=== PATIENT | male | born 1930 | race Caucasian/White ===

== ENCOUNTER 2018-02-06 12:09 | Inpatient (IN) | payer MEDICARE, OTHER ==
[~2018-02-06] VITALS: Ht 182.9 cm; Wt 88.7 kg
--- NOTE | ~2018-02-06 | MORECARE ---
CASE MANAGEMENT DISCHARGE SUMMARY PATIENT: AMARA MCLAUGHLIN UNIT: [id number] ADM DATE: 02/06/18 AGE: 87 : [birth year] SEX: M ROOM/BED: D.2103 AUTHOR: GIO,DOC PHYSICIAN: REFERRING PHYSICIAN: ZAHEER AMAYA MD DATE OF SERVICE: 02/23/18 Discharge Plan Patient Name: AMARA MCLAUGHLIN Facility: [facility]:[place] : 1930 Planned Disposition: Halfway Facility Anticipated Discharge Date: 02/23/18 Discharge Date: Expected LOS: 17 Initial Reviewer: [id number] Initial Review Date: 02/06/2018 Generated: 02/23/18 1:51 pm Comments DCP- Discharge Planning Updated by [email or web address]: Sal Greene on 02/22/18 1:[address] Patient Name: AMARA MCLAUGHLIN Encounter No: [id number] : 1930 Primary Insurance: MEDICARE A & B Anticipated DC Date: 02-21-2018 Planned Disposition: Halfway Facility External Planned Provider: JAY MAHONEY MEDICARE REHAB BED DCP follow-up note: [facility] WILL ACCEPT PT FOR REHAB WHEN STABLE. GOLD FAXED UPDATE TO [facility] AT [phone]. FOR DISCHARGE TO REHAB AT [facility], FAX DISCHARGE INFORMATION TO [facility] AT [phone]. NURSE REPORT TO BE CALLED TO [facility] AT [phone]. [facility] TO ARRANGE VAN TRANSPORTATION. Sal Greene CASE MANAGEMENT Appended by Sal Greene on 02/22/2018 12:05 CDT: GOLD RECEIVED CALL FROM FRANSISCO OF [facility], , UPDATE RECEIVED BY FRANSISCO. FRANSISCO REPORTS IT IS LATE IN THE DAY TO RECEIVE PT AT [facility] AND IF PT IS STABLE AND IF THE DOCTOR DISCHARGES TODAY, MAYBE THEY CAN GET PT TO [facility] TOMORROW, 02-23-18. FOR DISCHARGE TO REHAB AT [facility], FAX DISCHARGE INFORMATION TO [facility] AT [phone]. NURSE REPORT TO BE CALLED TO [facility] AT [phone]. [facility] TO ARRANGE VAN TRANSPORTATION. Sal [place], CASE MANAGEMENT Appended by Sal Greene on 02/22/2018 12:38 CDT: GOLD RECEIVED MESSAGE FROM IFTIKHAR RIOS, DISCHARGE ORDER WILL BE PUT IN TODAY, PT MAY DISCHARGE IN THE MORNING. GOLD CALLED FRANSISCO OF [facility], , NOTIFIED OF DISCHARGE; FRANSISCO WILL WORK ON GETTING TRANSPORT ARRANGEMENT FOR TOMORROW, 02-23-18. FOR DISCHARGE TO REHAB AT [facility], FAX DISCHARGE INFORMATION TO [facility] AT [phone]. NURSE REPORT TO BE CALLED TO [facility] AT [phone]. [facility] TO ARRANGE VAN TRANSPORTATION. Sal Greene CASE MANAGEMENT Appended by Sal Greene on 02/22/2018 14:28 CDT: CM RECEIVED DISCHARGE ORDER, SPOKE TO FRANSISCO AT [facility] WHO REPORTS THEY WILL [facility] PT TOMORROW, 02-23-18, AFTER LUNCH, IN REHAB VAN. CM SPOKE TO PT IN ROOM, PT [facility] AGREEMENT WITH [facility], ASKED CM TO CALL Peyton (sister) [phone]. CM NOTIFIED PT'S SISTER VIA PHONE. CM FAXED DISCHARGE ORDER AND DISCHARGE MEDICATION LIST TO [facility] AT [phone]. FOR DISCHARGE TO REHAB AT [facility], FAX DISCHARGE INFORMATION TO [facility] AT [phone]. NURSE REPORT TO BE CALLED TO [facility] AT [phone]. [facility] TO ARRANGE VAN TRANSPORTATION. Sal Greene CASE MANAGEMENT DCP- Discharge Planning Updated by [id number]: Sal Greene on 02/21/18 11:[address] Patient Name: AMARA MCLAUGHLIN Encounter No: [id number] : 1930 Primary Insurance: MEDICARE A & B Anticipated DC Date: 02-21-2018 Planned Disposition: Halfway Facility External Planned Provider: JAY LEVAN MEDICARE REHAB BED DCP follow-up note: GOLD MALCOLM CALLED [facility], , SPOKE TO YARIEL WHO REPORTS THEY WILL ACCEPT PT FOR REHAB WHEN STABLE. FOR DISCHARGE TO REHAB AT [facility], FAX DISCHARGE INFORMATION TO [facility] AT [phone]. NURSE REPORT TO BE CALLED TO [facility] AT [phone]. [facility] TO ARRANGE VAN TRANSPORTATION. Sal Greene CASE MANAGEMENT DCP- Discharge Planning Updated by [id number]: Sal Greene on 02/20/18 1:[address] Patient Name: AMARA MCLAUGHLIN Encounter No: [id number] : 1930 Primary Insurance: MEDICARE A & B Anticipated DC Date: 02-21-2018 Planned Disposition: Halfway Facility External Planned Provider: JAY MAHONEY MEDICARE REHAB BED DCP follow-up note: CM RECEIVED INPATIENT PRESCEENING ORDER, MET WITH PT IN ROOM TO DISCUSS DISCHARGE PLANNING AND NEEDS. PT DOES NOT WANT TO STAY IN [place] FOR REHAB, WANTS TO GO TO [facility] HE WILL BE CLOSE TO HOME AND HIS SISTER. IMPORTANT MESSAGE FROM MEDICARE PROVIDED AND DISCUSSED. PT ASKED THAT CM CALL HIS SISTER AND LET HER KNOW WHAT IS GOING ON. CM CALLED PT'S SISTER, PEYTON IGLESIAS, , NOTIFIED OF ABOVE. CM NOTIFIED IFTIKHAR RIOS AND DR. AMAYA WHO INFORMED CM THAT PT MAY DISCHARGE AFTER HAVING BOWEL MOVEMENT. CM CALLED Yariel at [facility] [phone], SPOKE TO EMILIANA WHO TOOK MESSAGE FOR SUMMER OF PENDING DISCHARGE TO REHAB. CM Faxed HOSPITAL UPDATE TO [facility] AT [phone]. FOR DISCHARGE TO REHAB AT [facility], FAX DISHCHARGE INFORMATION TO [facility] AT [phone]. NURSE REPORT TO BE CALLED TO [facility] AT [phone]. [facility] TO ARRANGE VAN TRANSPORTATION. NIHARIKA Martini MANAGEMENT DCP- Discharge Planning Updated by [id number]: Tori Cassidy on 02/13/18 5:[address] CM received notification from Summer @ [facility] [phone] . that patient has been accepted to their facility upon discharge. Yariel requested updated clinical when closer to discharge. CM will continue to follow and assist as needed with discharge planning / needs. DCP- Discharge Planning Updated by [id number]: Tori Cassidy on 02/12/18 11:[address] CM was notified that patient sister Peyton Iglesias is requesting patient to go for rehab at [facility] in [place]. CM contacted [facility] and sent records as requested. CM awaiting on approval. CM will continue to follow and assist as needed with discharge planning / needs. DCP- Discharge Planning Updated by [email or web address]: Yanet Magallanes on 02/07/18 12:[address] Patient Name: AMARA MCLAUGHLIN Admission Status: Elective Accout number: [id number] Admission Date: 02-06-2018 : 1930 Admission Diagnosis: Attending: ZAHEER AMAYA Current LOS: 1 Anticipated DC Date: Planned Disposition: Home Primary Insurance: MEDICARE A & B Discharge Planning Comments: CM met with patient to assess discharge planning needs. Patient lives independently in [place] where he plans to return. His sister or nephew will be the one to drive him home at discharge, He did state that he has a 18 year old girl who lives with him. He has a cane that he uses, but does not use any other DME. CM will continue to follow and assist with DC planning needs. Carrier Operator: Yanet Magallanes DCPIA - Discharge Planning Initial Assessment Updated by [id number]: Yanet Magallanes on 02/07/18 1:48 pm * Is the patient Alert and Oriented? Yes * How many steps to enter\exit or inside your home? * PCP Dr Echavarria ([place]) * [facility] * Preadmission Environment Home with Family * ADLs Independent * Equipment Cane * List name and contact numbers for known caregivers / representatives who currently or will assist patient after discharge: Peyton (sister) [phone] * Verbal permission to speak to the caregivers and representatives has been obtained from the patient. Yes * Additional services required to return to the preadmission environment? No * Can the patient safely return to the preadmission environment? Yes * Has this patient been hospitalized within the prior 30 days at any hospital? No Coverage Notice Reviewer: [id number] - Sal Greene Notice Issued Date-Time: 02/20/2018 14:30 Notice Type: IM Discharge Notice Notice Delivered To: Patient Relationship to Patient: College Dean Name: Delivery Method: HAND - Hand Delivered Roya Days: Prior Verbal Notification: Recipient Understood Notice: Yes Recipient Signature: Yes Med Rec Note Co-signed by Attending: Coverage Notice Comment: Last DP export: 02/22/18 1:31 Patient Name: AMARA MCLAUGHLIN Page 17732 at 1251 All edits/amendments must be made on the electronic document DICTATION DATE: 02/23/18 125 PAIRER: MAURO 02/23/18 1250 RPT#: [id number] DC DATE: STATUS: ADM IN [facility] [address] [place] [address] END OF REPORT
--- NOTE | ~2018-02-06 | MORECARE ---
CASE MANAGEMENT DISCHARGE SUMMARY PATIENT: AMARA MCLAUGHLIN UNIT: [id number] ADM DATE: 02/06/18 AGE: 87 : [birth year] SEX: M ROOM/BED: D.2105 AUTHOR: GIO,DOC PHYSICIAN: REFERRING PHYSICIAN: ZAHEER AMAYA MD DATE OF SERVICE: 02/20/18 Discharge Plan Patient Name: AMARA MCLAUGHLIN Facility: [facility]:[place] : 1930 Planned Disposition: Shelter Facility Anticipated Discharge Date: 02/21/18 Discharge Date: Expected LOS: 15 Initial Reviewer: [id number] Initial Review Date: 02/06/2018 Generated: 02/20/18 3:15 pm Comments DCP- Discharge Planning Updated by [id number]: Sal Greene on 02/20/18 1:[address] Patient Name: AMARA MCLAUGHLIN Encounter No: [id number] : 1930 Primary Insurance: MEDICARE A & B Anticipated DC Date: 02-21-2018 Planned Disposition: Shelter Facility External Planned Provider: JYA MAHONEY MEDICARE REHAB BED DCP follow-up note: CM RECEIVED INPATIENT PRESCEENING ORDER, MET WITH PT IN ROOM TO DISCUSS DISCHARGE PLANNING AND NEEDS. PT DOES NOT WANT TO STAY IN [place] FOR REHAB, WANTS TO GO TO [facility] HE WILL BE CLOSE TO HOME AND HIS SISTER. IMPORTANT MESSAGE FROM MEDICARE PROVIDED AND DISCUSSED. PT ASKED THAT CM CALL HIS SISTER AND LET HER KNOW WHAT IS GOING ON. CM CALLED PT'S SISTER, PEYTON IGLESIAS, , NOTIFIED OF ABOVE. CM NOTIFIED IFTIKHAR RIOS AND DR. AMAYA WHO INFORMED CM THAT PT MAY DISCHARGE AFTER HAVING BOWEL MOVEMENT. CM CALLED Summer at [facility] [phone], SPOKE TO EMILIANA WHO TOOK MESSAGE FOR SUMMER OF PENDING DISCHARGE TO REHAB. CM Faxed HOSPITAL UPDATE TO [facility] AT [phone]. FOR DISCHARGE TO REHAB AT [facility], FAX DISHCHARGE INFORMATION TO [facility] AT [phone]. NURSE REPORT TO BE CALLED TO [facility] AT [phone]. [facility] TO ARRANGE VAN TRANSPORTATION. Sal Greene, CASE MANAGEMENT DCP- Discharge Planning Updated by [id number]: Tori Ange on 02/13/18 5:[address] CM received notification from Andressa @ [facility] [phone] . that patient has been accepted to their facility upon discharge. Andressa requested updated clinical when closer to discharge. CM will continue to follow and assist as needed with discharge planning / needs. DCP- Discharge Planning Updated by [email or web address]: Tori Ange on 02/12/18 11:[address] CM was notified that patient sister Peyton Iglesias is requesting patient to go for rehab at [facility] in [place]. CM contacted [facility] and sent records as requested. CM awaiting on approval. CM will continue to follow and assist as needed with discharge planning / needs. DCP- Discharge Planning Updated by [id number]: Yanet Magallanes on 02/07/18 12:[address] Patient Name: AMARA MCLAUGHLIN Admission Status: Elective Accout number: [id number] Admission Date: 02-06-2018 : 1930 Admission Diagnosis: Attending: ZAHEER AMAYA Current LOS: 1 Anticipated DC Date: Planned Disposition: Home Primary Insurance: MEDICARE A & B Discharge Planning Comments: CM met with patient to assess discharge planning needs. Patient lives independently in [place] where he plans to return. His sister or nephew will be the one to drive him home at discharge, He did state that he has a 18 year old girl who lives with him. He has a cane that he uses, but does not use any other DME. CM will continue to follow and assist with DC planning needs. Exhibitions Curator: Yanet Magallanes DCPIA - Discharge Planning Initial Assessment Updated by [email or web address]: Yanet Magallanes on 02/07/18 1:48 pm * Is the patient Alert and Oriented? Yes * How many steps to enter\exit or inside your home? * PCP Dr Echavarria ([place]) * [facility] * Preadmission Environment Home with Family * ADLs Independent * Equipment Cane * List name and contact numbers for known caregivers / representatives who currently or will assist patient after discharge: Peyton (sister) [phone] * Verbal permission to speak to the caregivers and representatives has been obtained from the patient. Yes * Additional services required to return to the preadmission environment? No * Can the patient safely return to the preadmission environment? Yes * Has this patient been hospitalized within the prior 30 days at any hospital? No Coverage Notice Reviewer: [id number] Marie Greene Notice Issued Date-Time: 02/20/2018 14:30 Notice Type: IM Discharge Notice Notice Delivered To: Patient Relationship to Patient: Plant Science Professor Name: Delivery Method: HAND - Hand Delivered Roya Days: Prior Verbal Notification: Recipient Understood Notice: Yes Recipient Signature: Yes Med Rec Note Co-signed by Attending: Coverage Notice Comment: Last DP export: 02/20/18 1:08 Patient Name: AMARA MCLAUGHLIN Page 09153 at 1416 All edits/amendments must be made on the electronic document DICTATION DATE: 02/20/181414 SUSTAINABILITY ENGINEER: MAURO 02/20/181414 RPT#: [id number] DC DATE: STATUS: [facility] [address] [place] [address] END OF REPORT
--- NOTE | ~2018-02-06 | MORECARE ---
CASE MANAGEMENT DISCHARGE SUMMARY PATIENT: AMARA MCLAUGHLIN UNIT: [id number] ADM DATE: 02/06/18 AGE: 87 : [birth year] SEX: M ROOM/BED: D.2104 AUTHOR: GIO,DOC PHYSICIAN: REFERRING PHYSICIAN: ZAHEER AMAYA MD DATE OF SERVICE: 02/22/18 Discharge Plan Patient Name: AMARA MCLAUGHLIN Facility: [facility]:[place] : 1930 Planned Disposition: [facility] Facility Anticipated Discharge Date: 02/21/18 Discharge Date: Expected LOS: 15 Initial Reviewer: [id number] Initial Review Date: 02/06/2018 Generated: 02/22/18 1:38 pm Comments DCP- Discharge Planning Updated by [email or web address]: Sal Greene on 02/22/18 11:[address] Patient Name: AMARA MCLAUGHLIN Encounter No: [id number] : 1930 Primary Insurance: MEDICARE A & B Anticipated DC Date: 02-21-2018 Planned Disposition: [facility] Facility External Planned Provider: JAY MAHONEY MEDICARE REHAB BED DCP follow-up note: [facility] WILL ACCEPT PT FOR REHAB WHEN STABLE. GOLD FAXED UPDATE TO [facility] AT [phone]. FOR DISCHARGE TO REHAB AT [facility], FAX DISCHARGE INFORMATION TO [facility] AT [phone]. NURSE REPORT TO BE CALLED TO [facility] AT [phone]. [facility] TO ARRANGE VAN TRANSPORTATION. Sal Greene CASE MANAGEMENT Appended by Sal Greene on 02/22/2018 12:05 CDT: GOLD RECEIVED CALL FROM FRANSISCO OF [facility], , UPDATE RECEIVED BY FRANSISCO. FRANSISCO REPORTS IT IS LATE IN THE DAY TO RECEIVE PT AT [facility] AND IF PT IS STABLE AND IF THE DOCTOR DISCHARGES TODAY, MAYBE THEY CAN GET PT TO [facility] TOMORROW, 02-23-18. FOR DISCHARGE TO REHAB AT [facility], FAX DISCHARGE INFORMATION TO [facility] AT [phone]. NURSE REPORT TO BE CALLED TO [facility] AT [phone]. [facility] TO ARRANGE VAN TRANSPORTATION. Sal [place], CASE MANAGEMENT Appended by Sal Greene on 02/22/2018 12:38 CDT: CM RECEIVED MESSAGE FROM IFTIKHAR RIOS, DISCHARGE ORDER WILL BE PUT IN TODAY, PT MAY DISCHARGE IN THE MORNING. CM CALLED FRANSISCO OF [facility], , NOTIFIED OF DISCHARGE; FRANSISCO WILL WORK ON GETTING TRANSPORT ARRANGEMENT FOR TOMORROW, 02-23-18. FOR DISCHARGE TO REHAB AT [facility], FAX DISCHARGE INFORMATION TO [facility] AT [phone]. NURSE REPORT TO BE CALLED TO [facility] AT [phone]. [facility] TO ARRANGE VAN TRANSPORTATION. Sal Greene CASE MANAGEMENT DCP- Discharge Planning Updated by [id number]: Sal Greene on 02/21/18 11:[address] Patient Name: AMARA MCLAUGHLIN Encounter No: [id number] : 1930 Primary Insurance: MEDICARE A & B Anticipated DC Date: 02-21-2018 Planned Disposition: [facility] Facility External Planned Provider: [facility], MEDICARE REHAB BED DCP follow-up note: CM CM CALLED [facility], , SPOKE TO YARIEL WHO REPORTS THEY WILL ACCEPT PT FOR REHAB WHEN STABLE. FOR DISCHARGE TO REHAB AT [facility], FAX DISCHARGE INFORMATION TO [facility] AT [phone]. NURSE REPORT TO BE CALLED TO [facility] AT [phone]. [facility] TO ARRANGE VAN TRANSPORTATION. NIHARIKA Martini DCP- Discharge Planning Updated by [id number]: Sal Greene on 02/20/18 1:[address] Patient Name: AMARA MCLAUGHLIN Encounter No: [id number] : 1930 Primary Insurance: MEDICARE A & B Anticipated DC Date: 02-21-2018 Planned Disposition: [facility] Facility External Planned Provider: [facility], MEDICARE REHAB BED DCP follow-up note: CM RECEIVED INPATIENT PRESCEENING ORDER, MET WITH PT IN ROOM TO DISCUSS DISCHARGE PLANNING AND NEEDS. PT DOES NOT WANT TO STAY IN [place] FOR REHAB, WANTS TO GO TO [facility]P FACILITY HE WILL BE CLOSE TO HOME AND HIS SISTER. IMPORTANT MESSAGE FROM MEDICARE PROVIDED AND DISCUSSED. PT ASKED THAT CM CALL HIS SISTER AND LET HER KNOW WHAT IS GOING ON. CM CALLED PT'S SISTER, PEYTON IGLESIAS, , NOTIFIED OF ABOVE. CM NOTIFIED IFTIKHAR RIOS AND DR. AMAYA WHO INFORMED CM THAT PT MAY DISCHARGE AFTER HAVING BOWEL MOVEMENT. CM CALLED Yariel at [facility] [phone], SPOKE TO EMILIANA WHO TOOK MESSAGE FOR SUMMER OF PENDING DISCHARGE TO REHAB. CM Faxed HOSPITAL UPDATE TO [facility] AT [phone]. FOR DISCHARGE TO REHAB AT [facility], FAX DISHCHARGE INFORMATION TO [facility] AT [phone]. NURSE REPORT TO BE CALLED TO [facility] AT [phone]. [facility] TO ARRANGE VAN TRANSPORTATION. Sal Greene, CASE MANAGEMENT DCP- Discharge Planning Updated by [email or web address]: Tori Cassidy on 02/13/18 5:[address] CM received notification from Yariel @ [facility] [phone] . that patient has been accepted to their facility upon discharge. [facility] requested updated clinical when closer to discharge. CM will continue to follow and assist as needed with discharge planning / needs. DCP- Discharge Planning Updated by [id number]: Tori Cassidy on 02/12/18 11:[address] CM was notified that patient sister Peyton Iglesias is requesting patient to go for rehab at [facility] in [place]. CM contacted [facility] and sent records as requested. CM awaiting on approval. CM will continue to follow and assist as needed with discharge planning / needs. DCP- Discharge Planning Updated by [id number]: Yanet Magallanes on 02/07/18 12:[address] Patient Name: AMARA MCLAUGHLIN Admission Status: Elective Accout number: [id number] Admission Date: 02-06-2018 : 1930 Admission Diagnosis: Attending: ZAHEER AMAYA Current LOS: 1 Anticipated DC Date: Planned Disposition: Home Primary Insurance: MEDICARE A & B Discharge Planning Comments: CM met with patient to assess discharge planning needs. Patient lives independently in [place] where he plans to return. His sister or nephew will be the one to drive him home at discharge, He did state that he has a 18 year old girl who lives with him. He has a cane that he uses, but does not use any other DME. CM will continue to follow and assist with DC planning needs. Systems Integration Analyst: Yanet Magallanes DCPIA - Discharge Planning Initial Assessment Updated by [id number]: Yanet Magallanes on 02/07/18 1:48 pm * Is the patient Alert and Oriented? Yes * How many steps to enter\exit or inside your home? * PCP Dr Echavarria ([place]) * [facility] * Preadmission Environment Home with Family * ADLs Independent * Equipment Cane * List name and contact numbers for known caregivers / representatives who currently or will assist patient after discharge: Peyton (sister) [phone] * Verbal permission to speak to the caregivers and representatives has been obtained from the patient. Yes * Additional services required to return to the preadmission environment? No * Can the patient safely return to the preadmission environment? Yes * Has this patient been hospitalized within the prior 30 days at any hospital? No Coverage Notice Reviewer: [id number] Marie Greene Notice Issued Date-Time: 02/20/2018 14:30 Notice Type: IM Discharge Notice Notice Delivered To: Patient Relationship to Patient: Carpet Binder Name: Delivery Method: HAND - Hand Delivered Roya Days: Prior Verbal Notification: Recipient Understood Notice: Yes Recipient Signature: Yes Med Rec Note Co-signed by Attending: Coverage Notice Comment: Last DP export: 02/22/18 11:11 Patient Name: AMARA MCLAUGHLIN Page 40822 at 1238 All edits/amendments must be made on the electronic document DICTATION DATE: 02/22/18 1238 SHELTER ADVOCATE: MAURO 02/22/18 1238 RPT#: [id number] DC DATE: STATUS: ADM IN [facility] [address] [place] [address] END OF REPORT
--- NOTE | ~2018-02-06 | MORECARE ---
CASE MANAGEMENT DISCHARGE SUMMARY PATIENT: AMARA MCLAUGHLIN UNIT: [id number] ADM DATE: 02/06/18 AGE: 87 : [birth year] SEX: M ROOM/BED: D.2105 AUTHOR: GIODOC PHYSICIAN: REFERRING PHYSICIAN: ZAHEER AMAYA MD DATE OF SERVICE: 02/21/18 Discharge Plan Patient Name: AMARA MCLAUGHLIN Facility: [facility]:[place] : 1930 Planned Disposition: Longterm Facility Anticipated Discharge Date: 02/21/18 Discharge Date: Expected LOS: 15 Initial Reviewer: [id number] Initial Review Date: 02/06/2018 Generated: 02/21/18 1:10 pm Comments DCP- Discharge Planning Updated by [id number]: Sal Greene on 02/21/18 11:[address] Patient Name: AMARA MCLAUGHLIN Encounter No: [id number] : 1930 Primary Insurance: MEDICARE A & B Anticipated DC Date: 02-21-2018 Planned Disposition: Longterm Facility External Planned Provider: [facility], MEDICARE REHAB BED DCP follow-up note: CM CM CALLED [facility], , SPOKE TO [facility] WHO REPORTS THEY WILL ACCEPT PT FOR REHAB WHEN STABLE. FOR DISCHARGE TO REHAB AT [facility], FAX DISCHARGE INFORMATION TO [facility] AT [phone]. NURSE REPORT TO BE CALLED TO [facility] AT [phone]. [facility] TO ARRANGE VAN TRANSPORTATION. NIHARIKA Martini DCP- Discharge Planning Updated by [id number]: Sal Greene on 02/20/18 1:[address] Patient Name: AMARA MCLAUGHLIN Encounter No: [id number] : 1930 Primary Insurance: MEDICARE A & B Anticipated DC Date: 02-21-2018 Planned Disposition: Longterm Facility External Planned Provider: [facility], MEDICARE REHAB BED DCP follow-up note: CM RECEIVED INPATIENT PRESCEENING ORDER, MET WITH PT IN ROOM TO DISCUSS DISCHARGE PLANNING AND NEEDS. PT DOES NOT WANT TO STAY IN [place] FOR REHAB, WANTS TO GO [facility] HE WILL BE CLOSE TO HOME AND HIS SISTER. IMPORTANT MESSAGE FROM MEDICARE PROVIDED AND DISCUSSED. PT ASKED THAT CM CALL HIS SISTER AND LET HER KNOW WHAT IS GOING ON. CM CALLED PT'S SISTER, PETYON IGLESIAS, , NOTIFIED OF ABOVE. CM NOTIFIED IFTIKHAR RIOS AND DR. AMAYA WHO INFORMED CM THAT PT MAY DISCHARGE AFTER HAVING BOWEL MOVEMENT. CM CALLED Andressa at [facility] [phone], SPOKE TO EMILIANA WHO TOOK MESSAGE FOR SUMMER OF PENDING DISCHARGE TO REHAB. CM Faxed HOSPITAL UPDATE TO [facility] AT [phone]. FOR DISCHARGE TO REHAB AT [facility], FAX DISHCHARGE INFORMATION TO [facility] AT [phone]. NURSE REPORT TO BE CALLED TO [facility] AT [phone]. [facility] TO ARRANGE VAN TRANSPORTATION. Sal Greene, CASE MANAGEMENT DCP- Discharge Planning Updated by [id number]: Tori Cassidy on 02/13/18 5:[address] CM received notification from Andressa @ [facility] [phone] . that patient has been accepted to their facility upon discharge. [facility] requested updated clinical when closer to discharge. CM will continue to follow and assist as needed with discharge planning / needs. DCP- Discharge Planning Updated by [id number]: Tori Cassidy on 02/12/18 11:[address] CM was notified that patient sister Peyton Iglesias is requesting patient to go for rehab at [facility] in [place]. CM contacted [facility] and sent records as requested. CM awaiting on approval. CM will continue to follow and assist as needed with discharge planning / needs. DCP- Discharge Planning Updated by [id number]: Yanet Magallanes on 02/07/18 12:[address] Patient Name: AMARA MCLAUGHLIN Admission Status: Elective Accout number: [id number] Admission Date: 02-06-2018 : 1930 Admission Diagnosis: Attending: ZAHEER AMAYA Current LOS: 1 Anticipated DC Date: Planned Disposition: Home Primary Insurance: MEDICARE A & B Discharge Planning Comments: CM met with patient to assess discharge planning needs. Patient lives independently in [place] where he plans to return. His sister or nephew will be the one to drive him home at discharge, He did state that he has a 18 year old girl who lives with him. He has a cane that he uses, but does not use any other DME. CM will continue to follow and assist with DC planning needs. Distribution Field Technician: Yanet Magallanes DCPIA - Discharge Planning Initial Assessment Updated by [id number]: Yanet Magallanes on 02/07/18 1:48 pm * Is the patient Alert and Oriented? Yes * How many steps to enter\exit or inside your home? * PCP Dr Echavarria ([place]) * [facility] * Preadmission Environment Home with Family * ADLs Independent * Equipment Cane * List name and contact numbers for known caregivers / representatives who currently or will assist patient after discharge: Peyton (sister) [phone] * Verbal permission to speak to the caregivers and representatives has been obtained from the patient. Yes * Additional services required to return to the preadmission environment? No * Can the patient safely return to the preadmission environment? Yes * Has this patient been hospitalized within the prior 30 days at any hospital? No Coverage Notice Reviewer: [id number] Marie Greene Notice Issued Date-Time: 02/20/2018 14:30 Notice Type: IM Discharge Notice Notice Delivered To: Patient Relationship to Patient: Clinical Nurse Specialist Name: Delivery Method: HAND - Hand Delivered Roya Days: Prior Verbal Notification: Recipient Understood Notice: Yes Recipient Signature: Yes Med Rec Note Co-signed by Attending: Coverage Notice Comment: Last DP export: 02/20/18 1:16 Patient Name: AMARA MCLAUGHLIN Page [id number] at 1210 All edits/amendments must be made on the electronic document DICTATION DATE: 02/21/18 1210 PAYROLL SECRETARY: MAURO 02/21/18 1210 RPT#: [id number] DC DATE: STATUS: ADM IN [facility] [address] [place] [address] END OF REPORT
--- NOTE | ~2018-02-06 | EC ---
PATIENT:AMARA MCLAUGHLIN DATE OF SERVICE: 02/06/18 SEX: M MEDICAL RECORD: [id number] DATE OF : [birth year] LOCATION:[place] [address] AGE OF PATIENT: 87 ADMISSION DATE: 02/06/18 REFERRING PHYSICIAN: INTERPRETING PHYSICIAN: TWYLA VANESSA MD ECHOCARDIOGRAM REPORT ECHO CHARGES 4 ECHO COMPLETE Date: 02/08/18 CLINICAL DIAGNOSIS: ATRIAL FLUTTER ECHOCARDIOGRAPHIC MEASUREMENTS (adult normal given) AC root (d.<3.7cm) 3.6 cm LV Septum d (<1.2 cm> 1.4 cm Valve Excursion 1.9 cm LV Septum (systole) 1.6 cm Left Atria (s.<4.0cm> 3.3 cm LVPW d(<1.2cm) 1.3 cm RV (d.<2.3cm) 4.0 cm LVPW (sytole) 1.5 cm LV diastole(<5.6CM) 4.4 cm MV E-F(>70mm/sec) cm LV systole 3.2 cm LVOT Diameter 1.9 cm MV exc.(>10mm) 1.5 cm Est.ejection fraction (50-75%) % DOPPLER: LVIT cm/sec A 27.0 cm/sec E 100 cm/sec LA cm/sec RVSP 44 mmHg LVOT 110 cm/sec AOP1/2T m/s Asc. Ao 142 cm/sec RVOT 83 cm/sec RA cm/sec PA 110 cm/sec AV Gradient Peak 8.09 mmHg AV Mean 3.96 mmHg AV Area 2.1 cm MV Gradient Peak 4.23 mmHg MV Mean 1.52 mmHg MV Area cm COMMENTS: Medical Delivery Technician: Hernan DEVINE Assembler Engine: 1 Dr. Vanessa TAPE# PACS Pericardial Effusion N DATE OF SERVICE: 02/08/2018 ECHOCARDIOGRAM DATE OF SERVICE: 02/08/2018 FINDINGS: 1. Left ventricular chamber size is within normal limits. Left ventricular systolic function is normal. Overall ejection fraction estimated at 55%. 2. Left atrium is within normal limits at 3.3 cm. Right atrium and right ECHOCARDIOGRAM REPORT [id number] AMARA MCLAUGHLIN ventricle chamber sizes are moderately dilated. 3. Valvular structures have normal structure and motion. 4. Doppler interrogation reveals tzcn-zh-zqiajddj mitral regurgitation, goav-am-ahubgdca tricuspid regurgitation, no other valvular insufficiency or stenosis. Pulmonary systolic pressure is estimated at 44 mmHg. 5. No evidence of pericardial effusion or left ventricular thrombus. 6. The patient is in atrial flutter during the study. TRANSINT:[id number] Voice Confirmation ID: [id number] DOCUMENT ID: [id number] TWYLA VANESSA MD at 0924 CC: [id number] DICTATION DATE: 02/08/18 1203 REGIONAL EDUCATION COORDINATOR: 02/08/18 1214 ADM IN [place] [id number] [place] [address]
--- NOTE | ~2018-02-06 | MORECARE ---
CASE MANAGEMENT DISCHARGE SUMMARY PATIENT: AMARA MCLAUGHLIN UNIT: [id number] ADM DATE: 02/06/18 AGE: 87 : [birth year] SEX: M ROOM/BED: D.2105 AUTHOR: GIODOC PHYSICIAN: REFERRING PHYSICIAN: ZAHEER AMAYA MD DATE OF SERVICE: 02/22/18 Discharge Plan Patient Name: AMARA MCLAUGHLIN Facility: [facility]:[place] : 1930 Planned Disposition: Fdc Facility Anticipated Discharge Date: 02/21/18 Discharge Date: Expected LOS: 15 Initial Reviewer: [email or web address] Initial Review Date: 02/06/2018 Generated: 02/22/18 8:53 am Comments DCP- Discharge Planning Updated by [id number]: Sal Greene on 02/22/18 6:[address] Patient Name: AMARA MCLAUGHLIN Encounter No: [id number] : 1930 Primary Insurance: MEDICARE A & B Anticipated DC Date: 02-21-2018 Planned Disposition: Fdc Facility External Planned Provider: [facility], MEDICARE REHAB BED DCP follow-up note: [facility] WILL ACCEPT PT FOR REHAB WHEN STABLE. CM FAXED UPDATE TO [facility] AT [phone]. FOR DISCHARGE TO REHAB AT [facility], FAX DISCHARGE INFORMATION TO [facility] AT [phone]. NURSE REPORT TO BE CALLED TO [facility] AT [phone]. [facility] TO ARRANGE VAN TRANSPORTATION. NIHARIKA Martini DCP- Discharge Planning Updated by [id number]: Sal Greene on 02/21/18 11:[address] Patient Name: AMARA MCLAUGHLIN Encounter No: [id number] : 1930 Primary Insurance: MEDICARE A & B Anticipated DC Date: 02-21-2018 Planned Disposition: Fdc Facility External Planned Provider: [facility], MEDICARE REHAB BED DCP follow-up note: GOLD MALCOLM CALLED [facility], , SPOKE TO [facility] WHO REPORTS THEY WILL ACCEPT PT FOR REHAB WHEN STABLE. FOR DISCHARGE TO REHAB AT [facility], FAX DISCHARGE INFORMATION TO [facility] AT [phone]. NURSE REPORT TO BE CALLED TO [facility] AT [phone]. [facility] TO ARRANGE VAN TRANSPORTATION. NIHARIKA Martini MANAGEMENT DCP- Discharge Planning Updated by [id number]: Sal Greene on 02/20/18 1:[address] Patient Name: AMARA MCLAUGHLIN Encounter No: [id number] : 1930 Primary Insurance: MEDICARE A & B Anticipated DC Date: 02-21-2018 Planned Disposition: Fdc Facility External Planned Provider: [facility] B[facility] DCP follow-up note: CM RECEIVED INPATIENT PRESCEENING ORDER, MET WITH PT IN ROOM TO DISCUSS DISCHARGE PLANNING AND NEEDS. PT DOES NOT WANT TO STAY IN [place] FOR REHAB, WANTS TO GO TO [facility] HE WILL BE CLOSE TO HOME AND HIS SISTER. IMPORTANT MESSAGE FROM MEDICARE PROVIDED AND DISCUSSED. PT ASKED THAT CM CALL HIS SISTER AND LET HER KNOW WHAT IS GOING ON. CM CALLED PT'S SISTER, PEYTON IGLESIAS, , NOTIFIED OF ABOVE. CM NOTIFIED IFTIKHAR RIOS AND DR. AMAYA WHO INFORMED CM THAT PT MAY DISCHARGE AFTER HAVING BOWEL MOVEMENT. CM CALLED Andressa at [facility] [phone], SPOKE TO EMILIANA WHO TOOK MESSAGE FOR SUMMER OF PENDING DISCHARGE TO REHAB. CM Faxed HOSPITAL UPDATE TO [facility] AT [phone]. FOR DISCHARGE TO REHAB AT [facility], FAX DISHCHARGE INFORMATION TO [facility] AT [phone]. NURSE REPORT TO BE CALLED TO [facility] AT [phone]. [facility] TO ARRANGE VAN TRANSPORTATION. NIHARIKA Martini MANAGEMENT DCP- Discharge Planning Updated by [id number]: Tori Cassidy on 02/13/18 5:[address] CM received notification from Andressa @ [facility] [phone] . that patient has been accepted to their facility upon discharge. Andressa requested updated clinical when closer to discharge. CM will continue to follow and assist as needed with discharge planning / needs. DCP- Discharge Planning Updated by [id number]: Tori Cassidy on 02/12/18 11:[address] CM was notified that patient sister Peyton Iglesias is requesting patient to go for rehab at [facility] in [place]. CM contacted [facility] and sent records as requested. CM awaiting on approval. CM will continue to follow and assist as needed with discharge planning / needs. DCP- Discharge Planning Updated by [id number]: Yanet Magallanes on 02/07/18 12:[address] Patient Name: AMARA MCLAUGHLIN Admission Status: Elective Accout number: [id number] Admission Date: 02-06-2018 : 1930 Admission Diagnosis: Attending: ZAHEER AMAYA Current LOS: 1 Anticipated DC Date: Planned Disposition: Home Primary Insurance: MEDICARE A & B Discharge Planning Comments: CM met with patient to assess discharge planning needs. Patient lives independently in [place] where he plans to return. His sister or nephew will be the one to drive him home at discharge, He did state that he has a 18 year old girl who lives with him. He has a cane that he uses, but does not use any other DME. CM will continue to follow and assist with DC planning needs. Hematology Nurse: Yanet Magallanes DCPIA - Discharge Planning Initial Assessment Updated by [email or web address]: Yanet Magallanes on 02/07/18 1:48 pm * Is the patient Alert and Oriented? Yes * How many steps to enter\exit or inside your home? * PCP Dr Echavarria ([place]) * [facility] * Preadmission Environment Home with Family * ADLs Independent * Equipment Cane * List name and contact numbers for known caregivers / representatives who currently or will assist patient after discharge: Peyton (sister) [phone] * Verbal permission to speak to the caregivers and representatives has been obtained from the patient. Yes * Additional services required to return to the preadmission environment? No * Can the patient safely return to the preadmission environment? Yes * Has this patient been hospitalized within the prior 30 days at any hospital? No Coverage Notice Reviewer: [id number] - Sal Greene Notice Issued Date-Time: 02/20/2018 14:30 Notice Type: IM Discharge Notice Notice Delivered To: Patient Relationship to Patient: Transport Truck Driver Name: Delivery Method: HAND - Hand Delivered Roya Days: Prior Verbal Notification: Recipient Understood Notice: Yes Recipient Signature: Yes Med Rec Note Co-signed by Attending: Coverage Notice Comment: Last DP export: 02/21/18 11:10 Patient Name: AMARA MCLAUGHLIN Page 33319 at 0753 All edits/amendments must be made on the electronic document DICTATION DATE: 02/22/18751 SENIOR [employer]YNAM[employer] CRM DEVELOPER: MAURO 02/22/18751 RPT#: [id number] DC DATE: STATUS: ADM IN [facility] [address] [place] [address] END OF REPORT
--- NOTE | ~2018-02-06 | OP ---
PATIENT NAME: AMARA MCLAUGHLIN MEDICAL RECORD: [id number] :[birth year] LOCATION:[facility] D.CV03 ADMISSION DATE:02/06/18 SURGEON: MACARIO VELÁSQUEZ MD DATE OF OPERATION: 02/08/2018 PREOPERATIVE DIAGNOSES: 1. Small bowel obstruction. 2. Hypertension. 3. Umbilical hernia. 4. Atrial fibrillation. 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 POSTOPERATIVE DIAGNOSES: 1. Small bowel obstruction. 2. Hypertension. 3. Umbilical hernia. 4. Atrial fibrillation. 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 PROCEDURE: Diagnostic laparoscopy with laparoscopic lysis of adhesions. SURGEON: Macario Velásquez MD REPORT OF PROCEDURE: The patient's abdomen was prepped and draped in sterile fashion. A Veress needle was inserted in the left upper quadrant and the abdomen was insufflated. A 5-mm Visiport trocar was inserted in the left lateral abdomen. There was dilation of the small bowel and also some duskiness and swelling to the mesentery of the distal small bowel. Two more 5-mm trocars were placed in the left lateral abdomen. We were able to find the cecum and ran back from the terminal ileum and almost immediately ran into a tethering of the small bowel. Small bowel distal to this was normal in caliber; proximal to this, it was quite dilated and swollen. We were able to release adhesive band of the mesentery and appendix epiploica. Upon releasing this, the small bowel was easily mobile and actually started to improve in its coloration and swelling. There was no sign of any gangrenous tissue. There were no signs of any succuss. There was some ascitic fluid in the abdomen, but it did not appear to be dirty. We ran the small bowel back for ways and saw no evidence of any other blockages or lesions. At this point, the ports and insufflation were then removed. A 10 mL of 0.25% Marcaine with epinephrine were infused into the surrounding tissues and the wounds were closed with subcutaneous 5-0 Monocryl. COMPLICATIONS: None. CONDITION: Stable. ANESTHESIA: General endotracheal and local. BLOOD LOSS: Minimal. TRANSINT:[id number] Voice Confirmation ID: [id number] DOCUMENT ID: [id number] OPERATIVE REPORT [id number] AMARA MCLAUGHLIN MACARIO VELÁSQUEZ MD at 1409 CC: [id number] DICTATION DATE: 02/08/18 1522 MARRIAGE PERFORMER: 02/08/18 1708 ADM IN [place] [address] [place] [id number]
--- NOTE | ~2018-02-06 | MORECARE ---
CASE MANAGEMENT DISCHARGE SUMMARY PATIENT: AMARA MCLAUGHLIN UNIT: [id number] ADM DATE: 02/06/18 AGE: 87 : [birth year] SEX: M ROOM/BED: D.2108 AUTHOR: GIO,DOC PHYSICIAN: REFERRING PHYSICIAN: ZAHEER AMAYA MD DATE OF SERVICE: 02/22/18 Discharge Plan Patient Name: AMARA MCLAUGHLIN Facility: [facility]:[place] : 1930 Planned Disposition: Group Home Facility Anticipated Discharge Date: 02/23/18 Discharge Date: Expected LOS: 17 Initial Reviewer: [email or web address] Initial Review Date: 02/06/2018 Generated: 02/22/18 3:31 pm Comments DCP- Discharge Planning Updated by [email or web address]: Sal Greene on 02/22/18 1:[address] Patient Name: AMARA MCLAUGHLIN Encounter No: [id number] : 1930 Primary Insurance: MEDICARE A & B Anticipated DC Date: 02-21-2018 Planned Disposition: Group Home Facility External Planned Provider: JAY [facility] MEDICARE REHAB BED DCP follow-up note: [facility] WILL ACCEPT PT FOR REHAB WHEN STABLE. GOLD FAXED UPDATE TO [facility] AT [phone]. FOR DISCHARGE TO REHAB AT [facility], FAX DISCHARGE INFORMATION TO [facility] AT [phone]. NURSE REPORT TO BE CALLED TO [facility] AT [phone]. [facility] TO ARRANGE VAN TRANSPORTATION. Sal Greene CASE MANAGEMENT Appended by Sal Greene on 02/22/2018 12:05 CDT: GOLD RECEIVED CALL FROM FRANSISCO OF [facility], , UPDATE RECEIVED BY FRANSISCO. FRANSISCO REPORTS IT IS LATE IN THE DAY TO RECEIVE PT AT [place] AND IF PT IS STABLE AND IF THE DOCTOR DISCHARGES TODAY, MAYBE THEY CAN GET PT TO [facility] TOMORROW, 02-23-18. FOR DISCHARGE TO REHAB AT [facility], FAX DISCHARGE INFORMATION TO [facility] AT [phone]. NURSE REPORT TO BE CALLED TO [facility] AT [phone]. [facility] TO ARRANGE VAN TRANSPORTATION. Sal [place], CASE MANAGEMENT Appended by Sal Greene on 02/22/2018 12:38 CDT: GOLD RECEIVED MESSAGE FROM IFTIKHAR RIOS, DISCHARGE ORDER WILL BE PUT IN TODAY, PT MAY DISCHARGE IN THE MORNING. GOLD CALLED FRANSISCO OF [facility], , NOTIFIED OF DISCHARGE; FRANSISCO WILL WORK ON GETTING TRANSPORT ARRANGEMENT FOR TOMORROW, 02-23-18. FOR DISCHARGE TO REHAB AT [facility], FAX DISCHARGE INFORMATION TO [facility] AT [phone]. NURSE REPORT TO BE CALLED TO [facility] AT [phone]. [facility] TO ARRANGE VAN TRANSPORTATION. Sal Greene CASE MANAGEMENT Appended by Sal Greene on 02/22/2018 14:28 CDT: CM RECEIVED DISCHARGE ORDER, SPOKE TO FRANSISCO AT [facility] WHO REPORTS THEY WILL MANAGER MINING PT TOMORROW, 02-23-18, AFTER LUNCH, IN REHAB VAN. CM SPOKE TO PT IN ROOM, [facility], ASKED CM TO CALL Peyton (sister) [phone]. CM NOTIFIED PT'S SISTER VIA PHONE. CM FAXED DISCHARGE ORDER AND DISCHARGE MEDICATION LIST TO [facility] AT [phone]. FOR DISCHARGE TO REHAB AT [facility], FAX DISCHARGE INFORMATION TO [facility] AT [phone]. NURSE REPORT TO BE CALLED TO [facility] AT [phone]. [facility] TO ARRANGE VAN TRANSPORTATION. Sal Greene CASE MANAGEMENT DCP- Discharge Planning Updated by [id number]: Sal Greene on 02/21/18 11:[address] Patient Name: AMARA MCLAUGHLIN Encounter No: [id number] : 1930 Primary Insurance: MEDICARE A & B Anticipated DC Date: 02-21-2018 Planned Disposition: Group Home Facility External Planned Provider: [facility]AY [place] MEDICARE REHAB BED DCP follow-up note: GOLD MALCOLM CALLED [facility], , SPOKE TO YARIEL WHO REPORTS THEY WILL ACCEPT PT FOR REHAB WHEN STABLE. FOR DISCHARGE TO REHAB AT [facility], FAX DISCHARGE INFORMATION TO [facility] AT [phone]. NURSE REPORT TO BE CALLED TO [facility] AT [phone]. [facility] TO ARRANGE VAN TRANSPORTATION. Sal Greene CASE MANAGEMENT DCP- Discharge Planning Updated by [id number]: Sal Greene on 02/20/18 1:[address] Patient Name: AMARA MCLAUGHLIN Encounter No: [id number] : 1930 Primary Insurance: MEDICARE A & B Anticipated DC Date: 02-21-2018 Planned Disposition: Group Home Facility External Planned Provider: [facility] MEDICARE REHAB BED DCP follow-up note: CM RECEIVED INPATIENT PRESCEENING ORDER, MET WITH PT IN ROOM TO DISCUSS DISCHARGE PLANNING AND NEEDS. PT DOES NOT WANT TO STAY IN [place] FOR REHAB, WANTS TO GO TO [facility] HE WILL BE CLOSE TO HOME AND HIS SISTER. IMPORTANT MESSAGE FROM MEDICARE PROVIDED AND DISCUSSED. PT ASKED THAT CM CALL HIS SISTER AND LET HER KNOW WHAT IS GOING ON. CM CALLED PT'S SISTER, PEYTON IGLESIAS, , NOTIFIED OF ABOVE. CM NOTIFIED IFTIKHAR RIOS AND DR. AMAYA WHO INFORMED CM THAT PT MAY DISCHARGE AFTER HAVING BOWEL MOVEMENT. CM CALLED Yariel at [facility] [phone], SPOKE TO EMILIANA WHO TOOK MESSAGE FOR SUMMER OF PENDING DISCHARGE TO REHAB. CM Faxed HOSPITAL UPDATE TO [facility] AT [phone]. FOR DISCHARGE TO REHAB AT [facility], FAX DISHCHARGE INFORMATION TO [facility] AT [phone]. NURSE REPORT TO BE CALLED TO [facility] AT [phone]. [facility] TO ARRANGE VAN TRANSPORTATION. NIHARIKA Martini MANAGEMENT DCP- Discharge Planning Updated by [email or web address]: Tori Cassidy on 02/13/18 5:[address] CM received notification from Summer @ [facility] [phone] . that patient has been accepted to their facility upon discharge. Yariel requested updated clinical when closer to discharge. CM will continue to follow and assist as needed with discharge planning / needs. DCP- Discharge Planning Updated by [email or web address]: Tori Cassidy on 02/12/18 11:[address] CM was notified that patient sister Peyton Iglesias is requesting patient to go for rehab at [facility] in [place]. CM contacted [facility] and sent records as requested. CM awaiting on approval. CM will continue to follow and assist as needed with discharge planning / needs. DCP- Discharge Planning Updated by [id number]: Yanet Magallanes on 02/07/18 12:[address] Patient Name: AMARA MCLAUGHLIN Admission Status: Elective Accout number: [id number] Admission Date: 02-06-2018 : 1930 Admission Diagnosis: Attending: ZAHEER AMAYA Current LOS: 1 Anticipated DC Date: Planned Disposition: Home Primary Insurance: MEDICARE A & B Discharge Planning Comments: CM met with patient to assess discharge planning needs. Patient lives independently in [place] where he plans to return. His sister or nephew will be the one to drive him home at discharge, He did state that he has a 18 year old girl who lives with him. He has a cane that he uses, but does not use any other DME. CM will continue to follow and assist with DC planning needs. Parachute Inspector: Yanet Magallanes DCPIA - Discharge Planning Initial Assessment Updated by [id number]: Yanet Magallanes on 02/07/18 1:48 pm * Is the patient Alert and Oriented? Yes * How many steps to enter\exit or inside your home? * PCP Dr Echavarria ([place]) * [facility] * Preadmission Environment Home with Family * ADLs Independent * Equipment Cane * List name and contact numbers for known caregivers / representatives who currently or will assist patient after discharge: Peyton (sister) [phone] * Verbal permission to speak to the caregivers and representatives has been obtained from the patient. Yes * Additional services required to return to the preadmission environment? No * Can the patient safely return to the preadmission environment? Yes * Has this patient been hospitalized within the prior 30 days at any hospital? No Coverage Notice Reviewer: [id number] - Sal Greene Notice Issued Date-Time: 02/20/2018 14:30 Notice Type: IM Discharge Notice Notice Delivered To: Patient Relationship to Patient: Cable Installation Technician Name: Delivery Method: HAND - Hand Delivered Roya Days: Prior Verbal Notification: Recipient Understood Notice: Yes Recipient Signature: Yes Med Rec Note Co-signed by Attending: Coverage Notice Comment: Last DP export: 02/22/18 1:22 Patient Name: AMARA MCLAUGHLIN Page 39923 at 1431 All edits/amendments must be made on the electronic document DICTATION DATE: 02/22/181429 SUPERVISOR ROLLER PRINTING: MAURO 02/22/181429 RPT#: [id number] DC DATE: STATUS: ADM IN [facility] [address] [place] [address] END OF REPORT
--- NOTE | ~2018-02-06 | MORECARE ---
CASE MANAGEMENT DISCHARGE SUMMARY PATIENT: AMARA MCLAUGHLIN UNIT: [id number] ADM DATE: 02/06/18 AGE: 87 : [birth year] SEX: M ROOM/BED: D.2106 AUTHOR: GIO,DOC PHYSICIAN: REFERRING PHYSICIAN: ZAHEER AMAYA MD DATE OF SERVICE: 02/22/18 Discharge Plan Patient Name: AMARA MCLAUGHLIN Facility: [facility]:[place] : 1930 Planned Disposition: Alf Facility Anticipated Discharge Date: 02/23/18 Discharge Date: Expected LOS: 17 Initial Reviewer: [email or web address] Initial Review Date: 02/06/2018 Generated: 02/22/18 3:22 pm Comments DCP- Discharge Planning Updated by [email or web address]: Sal Greene on 02/22/18 11:[address] Patient Name: AMARA MCLAUGHLIN Encounter No: [id number] : 1930 Primary Insurance: MEDICARE A & B Anticipated DC Date: 02-21-2018 Planned Disposition: Alf Facility External Planned Provider: JAY [facility] MEDICARE REHAB BED DCP follow-up note: [facility] WILL ACCEPT PT FOR REHAB WHEN STABLE. GOLD FAXED UPDATE TO [facility] AT [phone]. FOR DISCHARGE TO REHAB AT [facility], FAX DISCHARGE INFORMATION TO [facility] AT [phone]. NURSE REPORT TO BE CALLED TO [facility] AT [phone]. [facility] TO ARRANGE VAN TRANSPORTATION. Sal Greene CASE MANAGEMENT Appended by Sal Greene on 02/22/2018 12:05 CDT: GOLD RECEIVED CALL FROM FRANSISCO OF [facility], , UPDATE RECEIVED BY FRANSISCO. FRANSISCO REPORTS IT IS LATE IN THE DAY TO RECEIVE PT AT [place] AND IF PT IS STABLE AND IF THE DOCTOR DISCHARGES TODAY, MAYBE THEY CAN GET PT TO [facility] TOMORROW, 02-23-18. FOR DISCHARGE TO REHAB AT [facility], FAX DISCHARGE INFORMATION TO [facility] AT [phone]. NURSE REPORT TO BE CALLED TO [facility] AT [phone]. [facility] TO ARRANGE VAN TRANSPORTATION. Sal [place], CASE MANAGEMENT Appended by Sal Greene on 02/22/2018 12:38 CDT: CM RECEIVED MESSAGE FROM IFTIKHAR RIOS, DISCHARGE ORDER WILL BE PUT IN TODAY, PT MAY DISCHARGE IN THE MORNING. CM CALLED FRANSISCO OF [facility], , NOTIFIED OF DISCHARGE; FRANSISCO WILL WORK ON GETTING TRANSPORT ARRANGEMENT FOR TOMORROW, 02-23-18. FOR DISCHARGE TO REHAB AT [facility], FAX DISCHARGE INFORMATION TO [facility] AT [phone]. NURSE REPORT TO BE CALLED TO [facility] AT [phone]. [facility] TO ARRANGE VAN TRANSPORTATION. Sal Greene CASE MANAGEMENT DCP- Discharge Planning Updated by [id number]: Sal Greene on 02/21/18 11:[address] Patient Name: AMARA MCLAUGHLIN Encounter No: [id number] : 1930 Primary Insurance: MEDICARE A & B Anticipated DC Date: 02-21-2018 Planned Disposition: Alf Facility External Planned Provider: [facility], MEDICARE REHAB BED DCP follow-up note: CM CM CALLED [facility], , SPOKE TO YARIEL WHO REPORTS THEY WILL ACCEPT PT FOR REHAB WHEN STABLE. FOR DISCHARGE TO REHAB AT [facility], FAX DISCHARGE INFORMATION TO [facility] AT [phone]. NURSE REPORT TO BE CALLED TO [facility] AT [phone]. [facility] TO ARRANGE VAN TRANSPORTATION. NIHARIKA Martini DCP- Discharge Planning Updated by [email or web address]: Sal Greene on 02/20/18 1:[address] Patient Name: AMARA MCLAUGHLIN Encounter No: [id number] : 1930 Primary Insurance: MEDICARE A & B Anticipated DC Date: 02-21-2018 Planned Disposition: Alf Facility External Planned Provider: [facility], MEDICARE REHAB BED DCP follow-up note: CM RECEIVED INPATIENT PRESCEENING ORDER, MET WITH PT IN ROOM TO DISCUSS DISCHARGE PLANNING AND NEEDS. PT DOES NOT WANT TO STAY IN [place] FOR REHAB, WANTS TO GO TO [facility] HE WILL BE CLOSE TO HOME AND HIS SISTER. IMPORTANT MESSAGE FROM MEDICARE PROVIDED AND DISCUSSED. PT ASKED THAT CM CALL HIS SISTER AND LET HER KNOW WHAT IS GOING ON. CM CALLED PT'S SISTER, PEYTON IGLESIAS, , NOTIFIED OF ABOVE. CM NOTIFIED IFTIKHAR RIOS AND DR. AMAYA WHO INFORMED CM THAT PT MAY DISCHARGE AFTER HAVING BOWEL MOVEMENT. CM CALLED Yariel at [facility] [phone], SPOKE TO EMILIANA WHO TOOK MESSAGE FOR SUMMER OF PENDING DISCHARGE TO REHAB. CM Faxed HOSPITAL UPDATE TO [facility] AT [phone]. FOR DISCHARGE TO REHAB AT [facility], FAX DISHCHARGE INFORMATION TO [facility] AT [phone]. NURSE REPORT TO BE CALLED TO [facility] AT [phone]. [facility] TO ARRANGE VAN TRANSPORTATION. Sal [place], CASE MANAGEMENT DCP- Discharge Planning Updated by [id number]: Tori Cassidy on 02/13/18 5:[address] CM received notification from Yariel @ [facility] [phone] . that patient has been accepted to their facility upon discharge. [facility] requested updated clinical when closer to discharge. CM will continue to follow and assist as needed with discharge planning / needs. DCP- Discharge Planning Updated by [id number]: Tori Cassidy on 02/12/18 11:[address] CM was notified that patient sister Peyton Iglesias is requesting patient to go for rehab at [facility] in [place]. CM contacted [facility] and sent records as requested. CM awaiting on approval. CM will continue to follow and assist as needed with discharge planning / needs. DCP- Discharge Planning Updated by [id number]: Yanet Magallanes on 02/07/18 12:[address] Patient Name: AMARA MCLAUGHLIN Admission Status: Elective Accout number: [id number] Admission Date: 02-06-2018 : 1930 Admission Diagnosis: Attending: ZAHEER AMAYA Current LOS: 1 Anticipated DC Date: Planned Disposition: Home Primary Insurance: MEDICARE A & B Discharge Planning Comments: CM met with patient to assess discharge planning needs. Patient lives independently in [place] where he plans to return. His sister or nephew will be the one to drive him home at discharge, He did state that he has a 18 year old girl who lives with him. He has a cane that he uses, but does not use any other DME. CM will continue to follow and assist with DC planning needs. Certified Indoor Environmentalist: Yanet Magallanes DCPIA - Discharge Planning Initial Assessment Updated by [email or web address]: Yanet Magallanes on 02/07/18 1:48 pm * Is the patient Alert and Oriented? Yes * How many steps to enter\exit or inside your home? * PCP Dr Echavarria ([place]) * [facility] * Preadmission Environment Home with Family * ADLs Independent * Equipment Cane * List name and contact numbers for known caregivers / representatives who currently or will assist patient after discharge: Peyton (sister) [phone] * Verbal permission to speak to the caregivers and representatives has been obtained from the patient. Yes * Additional services required to return to the preadmission environment? No * Can the patient safely return to the preadmission environment? Yes * Has this patient been hospitalized within the prior 30 days at any hospital? No Coverage Notice Reviewer: [id number] Marie Greene Notice Issued Date-Time: 02/20/2018 14:30 Notice Type: IM Discharge Notice Notice Delivered To: Patient Relationship to Patient: Printed Circuit Boards Inspector Name: Delivery Method: HAND - Hand Delivered Roya Days: Prior Verbal Notification: Recipient Understood Notice: Yes Recipient Signature: Yes Med Rec Note Co-signed by Attending: Coverage Notice Comment: Last DP export: 02/22/18 11:38 Patient Name: AMARA MCLAUGHLIN Page 43066 at 1423 All edits/amendments must be made on the electronic document DICTATION DATE: 02/22/181421 BOTTOM CRANE OPERATOR: MAURO 02/22/181421 RPT#: [id number] DC DATE: STATUS: ADM IN [facility] [address] [place] [address] END OF REPORT
--- NOTE | ~2018-02-06 | OP ---
PATIENT NAME: AMARA MCLAUGHLIN MEDICAL RECORD: [id number] :[birth year] LOCATION:D.M2 D.2105 ADMISSION DATE:02/06/18 SURGEON: JONATHAN VELÁSQUEZ MD DATE OF OPERATION: 02/18/2018 PREOPERATIVE DIAGNOSES: 1. Incarcerated umbilical hernia. 2. Atrial fibrillation. 3. Anticoagulation therapy. 4. Hypertension. 5. Abdominal aortic aneurysm. POSTOPERATIVE DIAGNOSES: 1. Incarcerated umbilical hernia. 2. Atrial fibrillation. 3. Anticoagulation therapy. 4. Hypertension. 5. Abdominal aortic aneurysm. PROCEDURE: Umbilical hernia repair without mesh. SURGEON: Jonathan Velásquez MD REPORT OF PROCEDURE: The patient's abdomen was prepped and draped in sterile fashion. A semicircular incision was made on the inferior aspect of the umbilicus. Electrocautery was used to dissect through subcutaneous tissues. I came through the thickened tissue of the umbilical stalk and entered the hernia sac. Once I entered the hernia sac, I did not see any bowel present currently. There was some ascitic fluid that was present along with some fatty tissue. I was able to clear all this inflamed tissue and eventually opened up the hernia sac and entered the abdominal cavity. Once inside, I was able to inspect the abdominal contents and could see no evidence of any necrotic bowel. The hernia sac was transected down to the fascial edges and the fascial defect was about 1.5 cm in greatest diameter. Once all of the hernia sac contents were removed, I then freed up the surface of the fascia above and below and then closed the fascial defect transversely using interrupted 0 Prolenes times 5. The wound was then irrigated out with normal saline and care was taken to assure there was no sign of any bleeding. The umbilicus was tacked down to the fascia using a single interrupted 3-0 Vicryl. Subcutaneous tissues were reapproximated with interrupted 3-0 Vicryl and the skin was closed with running subcutaneous 5-0 Monocryl. A 10 mL of 0.25% Marcaine with epinephrine was infused into the surrounding tissues and the wound was dressed appropriately. COMPLICATIONS: None. CONDITION: Stable. ANESTHESIA: General endotracheal and local. BLOOD LOSS: Minimal. TRANSINT:[id number] Voice Confirmation ID: [id number] DOCUMENT ID: [id number] OPERATIVE REPORT [id number] AMARA MCLAUGHLIN JONATHAN VELÁSQUEZ MD at 1441 CC: [id number] DICTATION DATE: 02/18/18 1240 REFLECTOR DRILLER AND DEBURRER: 02/19/18 0010 ADM IN [facility] [address] [place] [id number]
--- NOTE | ~2018-02-06 | MORECARE ---
CASE MANAGEMENT DISCHARGE SUMMARY PATIENT: AMARA MCLAUGHLIN UNIT: [id number] ADM DATE: 02/06/18 AGE: 87 : [birth year] SEX: M ROOM/BED: D.CV03 AUTHOR: DAVIN POWERS PHYSICIAN: REFERRING PHYSICIAN: ZAHEER AMAYA MD DATE OF SERVICE: 02/13/18 Discharge Plan Patient Name: AMARA MCLAUGHLIN Facility: [facility]:[place] : 1930 Planned Disposition: Home Anticipated Discharge Date: Discharge Date: Expected LOS: Initial Reviewer: [id number] Initial Review Date: 02/06/2018 Generated: 02/13/18 7:12 pm Comments DCP- Discharge Planning Updated by [id number]: Tori Cassidy on 02/13/18 5:[address] CM received notification from Andressa @ [facility] [phone] . that patient has been accepted to their facility upon discharge. Andressa requested updated clinical when closer to discharge. CM will continue to follow and assist as needed with discharge planning / needs. DCP- Discharge Planning Updated by [email or web address]: Tori Cassidy on 02/12/18 11:[address] CM was notified that patient sister Peyton Mendoza is requesting patient to go for rehab at [facility] in [place]. CM contacted [facility] and sent records as requested. CM awaiting on approval. CM will continue to follow and assist as needed with discharge planning / needs. DCP- Discharge Planning Updated by [email or web address]: Yanet Magallanes on 02/07/18 12:[address] Patient Name: AMARA MCLAUGHLIN Admission Status: Elective Accout number: [id number] Admission Date: 02-06-2018 : 1930 Admission Diagnosis: Attending: ZAHEER AMAYA Current LOS: 1 Anticipated DC Date: Planned Disposition: Home Primary Insurance: MEDICARE A & B Discharge Planning Comments: CM met with patient to assess discharge planning needs. Patient lives independently in [place] where he plans to return. His sister or nephew will be the one to drive him home at discharge, He did state that he has a 18 year old girl who lives with him. He has a cane that he uses, but does not use any other DME. CM will continue to follow and assist with DC planning needs. Privacy Specialist: Yanet Magallanes DCPIA - Discharge Planning Initial Assessment Updated by [email or web address]: Yanet Magallanes on 02/07/18 1:48 pm * Is the patient Alert and Oriented? Yes * How many steps to enter\exit or inside your home? * PCP Dr Echvaarria ([place]) * [facility] * Preadmission Environment Home with Family * ADLs Independent * Equipment Cane * List name and contact numbers for known caregivers / representatives who currently or will assist patient after discharge: Peyton (sister) [phone] * Verbal permission to speak to the caregivers and representatives has been obtained from the patient. Yes * Additional services required to return to the preadmission environment? No * Can the patient safely return to the preadmission environment? Yes * Has this patient been hospitalized within the prior 30 days at any hospital? No Last DP export: 02/12/18 11:08 Patient Name: AMARA MCLAUGHLIN Page 23175 at 1812 All edits/amendments must be made on the electronic document DICTATION DATE: 02/13/181811 HELPER STEEL FABRICATION: MAURO 02/13/181811 RPT#: [id number] DC DATE: STATUS: ADM IN [facility] [address] [place] [address] END OF REPORT
--- NOTE | ~2018-02-06 | MORECARE ---
CASE MANAGEMENT DISCHARGE SUMMARY PATIENT: AMARA MCLAUGHLIN UNIT: [id number] ADM DATE: 02/06/18 AGE: 87 : [birth year] SEX: M ROOM/BED: D.03 AUTHOR: GIODOC PHYSICIAN: REFERRING PHYSICIAN: ZAHEER AMAYA MD DATE OF SERVICE: 02/12/18 Discharge Plan Patient Name: AMARA MCLAUGHLIN Facility: [facility]:[place] : 1930 Planned Disposition: Home Anticipated Discharge Date: Discharge Date: Expected LOS: Initial Reviewer: [id number] Initial Review Date: 02/06/2018 Generated: 02/12/18 1:08 pm Comments DCP- Discharge Planning Updated by [id number]: Tori Cassidy on 02/12/18 11:[address] CM was notified that patient sister Peyton Mendoza is requesting patient to go for rehab at [facility] in [place]. CM contacted [facility] and sent records as requested. CM awaiting on approval. CM will continue to follow and assist as needed with discharge planning / needs. DCP- Discharge Planning Updated by [id number]: Yanet Magallanes on 02/07/18 12:[address] Patient Name: AMARA MCLAUGHLIN Admission Status: Elective Accout number: [id number] Admission Date: 02-06-2018 : 1930 Admission Diagnosis: Attending: ZAHEER AMAYA Current LOS: 1 Anticipated DC Date: Planned Disposition: Home Primary Insurance: MEDICARE A & B Discharge Planning Comments: CM met with patient to assess discharge planning needs. Patient lives independently in [place] where he plans to return. His sister or nephew will be the one to drive him home at discharge, He did state that he has a 18 year old girl who lives with him. He has a cane that he uses, but does not use any other DME. CM will continue to follow and assist with DC planning needs. Certified Midwife: Yanet Magallanes DCPIA - Discharge Planning Initial Assessment Updated by [id number]: Yanet Magallanes on 02/07/18 1:48 pm * Is the patient Alert and Oriented? Yes * How many steps to enter\exit or inside your home? * PCP Dr Echavarria ([place]) * [facility] * Preadmission Environment Home with Family * ADLs Independent * Equipment Cane * List name and contact numbers for known caregivers / representatives who currently or will assist patient after discharge: Peyton (sister) [phone] * Verbal permission to speak to the caregivers and representatives has been obtained from the patient. Yes * Additional services required to return to the preadmission environment? No * Can the patient safely return to the preadmission environment? Yes * Has this patient been hospitalized within the prior 30 days at any hospital? No Last DP export: 02/12/18 11:00 Patient Name: AMARA MCLAUGHLIN Page 46417 at 1208 All edits/amendments must be made on the electronic document DICTATION DATE: 02/12/181207 HEALTH AID: MAURO 02/12/181207 RPT#: [id number] DC DATE: STATUS: ADM IN [facility] [address] [place] [address] END OF REPORT
--- NOTE | ~2018-02-06 | MORECARE ---
CASE MANAGEMENT DISCHARGE SUMMARY PATIENT: AMARA MCLAUGHLIN UNIT: [id number] ADM DATE: 02/06/18 AGE: 87 : [birth year] SEX: M ROOM/BED: D.2105 AUTHOR: DAVIN POWERS PHYSICIAN: REFERRING PHYSICIAN: ZAHEER AMAYA MD DATE OF SERVICE: 02/20/18 Discharge Plan Patient Name: AMARA MCLAUGHLIN Facility: [facility]:[place] : 1930 Planned Disposition: Home Anticipated Discharge Date: 02/21/18 Discharge Date: Expected LOS: 15 Initial Reviewer: [id number] Initial Review Date: 02/06/2018 Generated: 02/20/18 3:00 pm Comments DCP- Discharge Planning Updated by [id number]: Tori Cassidy on 02/13/18 5:[address] CM received notification from Andressa @ [facility] [phone] . that patient has been accepted to their facility upon discharge. Andressa requested updated clinical when closer to discharge. CM will continue to follow and assist as needed with discharge planning / needs. DCP- Discharge Planning Updated by [email or web address]: Tori Cassidy on 02/12/18 11:[address] CM was notified that patient sister Peyton Mendoza is requesting patient to go for rehab at [facility] in [place]. CM contacted [facility] and sent records as requested. CM awaiting on approval. CM will continue to follow and assist as needed with discharge planning / needs. DCP- Discharge Planning Updated by [email or web address]: Yanet Magallanes on 02/07/18 12:[address] Patient Name: AMARA MCLAUGHLIN Admission Status: Elective Accout number: [id number] Admission Date: 02-06-2018 : 1930 Admission Diagnosis: Attending: ZAHEER AMAYA Current LOS: 1 Anticipated DC Date: Planned Disposition: Home Primary Insurance: MEDICARE A & B Discharge Planning Comments: CM met with patient to assess discharge planning needs. Patient lives independently in [place] where he plans to return. His sister or nephew will be the one to drive him home at discharge, He did state that he has a 18 year old girl who lives with him. He has a cane that he uses, but does not use any other DME. CM will continue to follow and assist with DC planning needs. Waste Disposal Leakage Tester: Yanet Magallanes DCPIA - Discharge Planning Initial Assessment Updated by [email or web address]: Yanet Magallanes on 02/07/18 1:48 pm * Is the patient Alert and Oriented? Yes * How many steps to enter\exit or inside your home? * PCP Dr Echavarria ([place]) * [facility] * Preadmission Environment Home with Family * ADLs Independent * Equipment Cane * List name and contact numbers for known caregivers / representatives who currently or will assist patient after discharge: Peyton (sister) [phone] * Verbal permission to speak to the caregivers and representatives has been obtained from the patient. Yes * Additional services required to return to the preadmission environment? No * Can the patient safely return to the preadmission environment? Yes * Has this patient been hospitalized within the prior 30 days at any hospital? No External Providers External Provider: [facility] Next Contact Date: 02/21/2018 Service Request Date: Service Type: Resolution: Reviewer: Comments: Coverage Notice Reviewer: [id number] - Sal Greene Notice Issued Date-Time: 02/20/2018 14:30 Notice Type: IM Discharge Notice Notice Delivered To: Patient Relationship to Patient: Student Financial Aid Manager Name: Delivery Method: HAND - Hand Delivered Roya Days: Prior Verbal Notification: Recipient Understood Notice: Yes Recipient Signature: Yes Med Rec Note Co-signed by Attending: Coverage Notice Comment: Last DP export: 02/13/18 5:12 Patient Name: AMARA MCLAUGHLIN Page 28551 at 1400 All edits/amendments must be made on the electronic document DICTATION DATE: 02/20/18 135 DIRECTOR CHILD DEVELOPMENT CENTER: MAURO 02/20/18 1357 RPT#: [id number] DC DATE: STATUS: ADM IN [facility] [address] [place] [address] END OF REPORT
--- NOTE | ~2018-02-06 | MORECARE ---
CASE MANAGEMENT DISCHARGE SUMMARY PATIENT: AMARA MCLAUGHLIN UNIT: [id number] ADM DATE: 02/06/18 AGE: 87 : [birth year] SEX: M ROOM/BED: D.2105 AUTHOR: DAVIN POWERS PHYSICIAN: REFERRING PHYSICIAN: ZAHEER AMAYA MD DATE OF SERVICE: 02/20/18 Discharge Plan Patient Name: AMARA MCLAUGHLIN Facility: [facility]:[place] : 1930 Planned Disposition: Usp Facility Anticipated Discharge Date: 02/21/18 Discharge Date: Expected LOS: 15 Initial Reviewer: [email or web address] Initial Review Date: 02/06/2018 Generated: 02/20/18 3:08 pm Comments DCP- Discharge Planning Updated by [email or web address]: Tori Cassidy on 02/13/18 5:[address] CM received notification from Andressa @ [facility] [phone] . that patient has been accepted to their facility upon discharge. Andressa requested updated clinical when closer to discharge. CM will continue to follow and assist as needed with discharge planning / needs. DCP- Discharge Planning Updated by [id number]: Tori Cassidy on 02/12/18 11:[address] CM was notified that patient sister Peyton Mendoza is requesting patient to go for rehab at [facility] in [place]. CM contacted [facility] and sent records as requested. CM awaiting on approval. CM will continue to follow and assist as needed with discharge planning / needs. DCP- Discharge Planning Updated by [id number]: Yanet Magallanes on 02/07/18 12:[address] Patient Name: AMARA MCLAUGHLIN Admission Status: Elective Accout number: [id number] Admission Date: 02-06-2018 : 1930 Admission Diagnosis: Attending: ZAHEER AMAYA Current LOS: 1 Anticipated DC Date: Planned Disposition: Home Primary Insurance: MEDICARE A & B Discharge Planning Comments: CM met with patient to assess discharge planning needs. Patient lives independently in [place] where he plans to return. His sister or nephew will be the one to drive him home at discharge, He did state that he has a 18 year old girl who lives with him. He has a cane that he uses, but does not use any other DME. CM will continue to follow and assist with DC planning needs. Senior Interior Designer: Yanet Magallanes DCPIA - Discharge Planning Initial Assessment Updated by [id number]: Yanet Magallanes on 02/07/18 1:48 pm * Is the patient Alert and Oriented? Yes * How many steps to enter\exit or inside your home? * PCP Dr Echavarria ([place]) * [facility] * Preadmission Environment Home with Family * ADLs Independent * Equipment Cane * List name and contact numbers for known caregivers / representatives who currently or will assist patient after discharge: Peyton (sister) [phone] * Verbal permission to speak to the caregivers and representatives has been obtained from the patient. Yes * Additional services required to return to the preadmission environment? No * Can the patient safely return to the preadmission environment? Yes * Has this patient been hospitalized within the prior 30 days at any hospital? No Coverage Notice Reviewer: [id number] Marie Greene Notice Issued Date-Time: 02/20/2018 14:30 Notice Type: IM Discharge Notice Notice Delivered To: Patient Relationship to Patient: Monogram Technician Name: Delivery Method: HAND - Hand Delivered Roya Days: Prior Verbal Notification: Recipient Understood Notice: Yes Recipient Signature: Yes Med Rec Note Co-signed by Attending: Coverage Notice Comment: Last DP export: 02/20/18 1:00 Patient Name: AMARA MCLAUGHLIN Page 16137 at 1408 All edits/amendments must be made on the electronic document DICTATION DATE: 02/20/181407 DIVISION SUPERVISOR: MAURO 02/20/181407 RPT#: [id number] DC DATE: STATUS: ADM IN [facility] [address] [place] [address] END OF REPORT
--- NOTE | ~2018-02-06 | MORECARE ---
CASE MANAGEMENT DISCHARGE SUMMARY PATIENT: AMARA MCLAUGHLIN UNIT: [id number] ADM DATE: 02/06/18 AGE: 87 : [birth year] SEX: M ROOM/BED: D.03 AUTHOR: GIODOC PHYSICIAN: REFERRING PHYSICIAN: ZAHEER AMAYA MD DATE OF SERVICE: 02/12/18 Discharge Plan Patient Name: AMARA MCLAUGHLIN Facility: [facility]:[place] : 1930 Planned Disposition: Home Anticipated Discharge Date: Discharge Date: Expected LOS: Initial Reviewer: [email or web address] Initial Review Date: 02/06/2018 Generated: 02/12/18 1:00 pm Comments DCP- Discharge Planning Updated by [email or web address]: Yanet Magallanes on 02/07/18 12:[address] Patient Name: AMARA MCLAUGHLIN Admission Status: Elective Accout number: [id number] Admission Date: 02-06-2018 : 1930 Admission Diagnosis: Attending: ZAHEER AMAYA Current LOS: 1 Anticipated DC Date: Planned Disposition: Home Primary Insurance: MEDICARE A & B Discharge Planning Comments: CM met with patient to assess discharge planning needs. Patient lives independently in [place] where he plans to return. His sister or nephew will be the one to drive him home at discharge, He did state that he has a 18 year old girl who lives with him. He has a cane that he uses, but does not use any other DME. CM will continue to follow and assist with DC planning needs. Pvc Monitor: Yanet Magallanes DCPIA - Discharge Planning Initial Assessment Updated by [id number]: Yanet Magallanes on 02/07/18 1:48 pm * Is the patient Alert and Oriented? Yes * How many steps to enter\exit or inside your home? * PCP Dr Echavarria ([place]) * [facility] * Preadmission Environment Home with Family * ADLs Independent * Equipment Cane * List name and contact numbers for known caregivers / representatives who currently or will assist patient after discharge: Peyton (sister) [phone] * Verbal permission to speak to the caregivers and representatives has been obtained from the patient. Yes * Additional services required to return to the preadmission environment? No * Can the patient safely return to the preadmission environment? Yes * Has this patient been hospitalized within the prior 30 days at any hospital? No External Providers External Provider: [facility] Next Contact Date: Service Request Date: Service Type: Resolution: Reviewer: Comments: Last DP export: 02/07/18 12:58 Patient Name: AMARA MCLAUGHLIN Page 99437 at 1200 All edits/amendments must be made on the electronic document DICTATION DATE: 02/12/181158 CORRECTIONS CORPORAL: MAURO 02/12/181158 RPT#: [id number] DC DATE: STATUS: ADM IN [facility] [address] [place] [address] END OF REPORT
--- NOTE | ~2018-02-06 | MORECARE ---
CASE MANAGEMENT DISCHARGE SUMMARY PATIENT: AMARA MCLAUGHLIN UNIT: [id number] ADM DATE: 02/06/18 AGE: 87 : [birth year] SEX: M ROOM/BED: D.2100 AUTHOR: GIO,DOC PHYSICIAN: REFERRING PHYSICIAN: ZAHEER AMAYA MD DATE OF SERVICE: 02/22/18 Discharge Plan Patient Name: AMARA MCLAUGHLIN Facility: [facility]:[place] : 1930 Planned Disposition: Correction Facility Anticipated Discharge Date: 02/21/18 Discharge Date: Expected LOS: 15 Initial Reviewer: [id number] Initial Review Date: 02/06/2018 Generated: 02/22/18 1:10 pm Comments DCP- Discharge Planning Updated by [email or web address]: Sal Greene on 02/22/18 11:[address] Patient Name: AMARA MCLAUGHLIN Encounter No: [id number] : 1930 Primary Insurance: MEDICARE A & B Anticipated DC Date: 02-21-2018 Planned Disposition: Correction Facility External Planned Provider: [facility] MEDICARE REHAB BED DCP follow-up note: [facility] WILL ACCEPT PT FOR REHAB WHEN STABLE. GOLD FAXED UPDATE TO [facility] AT [phone]. FOR DISCHARGE TO REHAB AT [facility], FAX DISCHARGE INFORMATION TO [facility] AT [phone]. NURSE REPORT TO BE CALLED TO [facility] AT [phone]. [facility] TO ARRANGE VAN TRANSPORTATION. Sal Greene CASE MANAGEMENT Appended by Sal rGeene on 02/22/2018 12:05 CDT: GOLD RECEIVED CALL FROM FRANSISCO OF [facility], , UPDATE RECEIVED BY FRANSISCO. FRANSISCO REPORTS IT IS LATE IN THE DAY TO RECEIVE PT AT [facility] AND IF PT IS STABLE AND IF THE DOCTOR DISCHARGES TODAY, MAYBE THEY CAN GET PT TO [facility] TOMORROW, 02-23-18. FOR DISCHARGE TO REHAB AT [facility], FAX DISCHARGE INFORMATION TO [facility] AT [phone]. NURSE REPORT TO BE CALLED TO [facility] AT [phone]. [facility] TO ARRANGE VAN TRANSPORTATION. NIHARIKA Martini DCP- Discharge Planning Updated by [id number]: Sal Greene on 02/21/18 11:[address] Patient Name: AMARA MCLAUGHLIN Encounter No: [id number] : 1930 Primary Insurance: MEDICARE A & B Anticipated DC Date: 02-21-2018 Planned Disposition: Correction Facility External Planned Provider: [facility], MEDICARE REHAB BED DCP follow-up note: GOLD MALCOML CALLED [facility], , SPOKE TO YARIEL WHO REPORTS THEY WILL ACCEPT PT FOR REHAB WHEN STABLE. FOR DISCHARGE TO REHAB AT [facility], FAX DISCHARGE INFORMATION TO [facility] AT [phone]. NURSE REPORT TO BE CALLED TO [facility] AT [phone]. [facility] TO ARRANGE VAN TRANSPORTATION. NIHARIKA Martini DCP- Discharge Planning Updated by [email or web address]: Sal Greene on 02/20/18 1:[address] Patient Name: AMARA MCLAUGHLIN Encounter No: [id number] : 1930 Primary Insurance: MEDICARE A & B Anticipated DC Date: 02-21-2018 Planned Disposition: [facility] Facility External Planned Provider: [facility], MEDICARE REHAB BED DCP follow-up note: CM RECEIVED INPATIENT PRESCEENING ORDER, MET WITH PT IN ROOM TO DISCUSS DISCHARGE PLANNING AND NEEDS. PT DOES NOT WANT TO STAY IN [place] FOR REHAB, WANTS TO GO TO [facility] HE WILL BE CLOSE TO HOME AND HIS SISTER. IMPORTANT MESSAGE FROM MEDICARE PROVIDED AND DISCUSSED. PT ASKED THAT CM CALL HIS SISTER AND LET HER KNOW WHAT IS GOING ON. CM CALLED PT'S SISTER, PEYTON IGLESIAS, , NOTIFIED OF ABOVE. CM NOTIFIED IFTIKHAR RIOS AND DR. AMAYA WHO INFORMED CM THAT PT MAY DISCHARGE AFTER HAVING BOWEL MOVEMENT. CM CALLED Yariel at [facility] [phone], SPOKE TO EMILIANA WHO TOOK MESSAGE FOR SUMMER OF PENDING DISCHARGE TO REHAB. CM Faxed HOSPITAL UPDATE TO [facility] AT [phone]. FOR DISCHARGE TO REHAB AT [facility], FAX DISHCHARGE INFORMATION TO [facility] AT [phone]. NURSE REPORT TO BE CALLED TO [facility] AT [phone]. [facility] TO ARRANGE VAN TRANSPORTATION. Sal Greene, CASE MANAGEMENT DCP- Discharge Planning Updated by [id number]: Tori Cassidy on 02/13/18 5:[address] CM received notification from Yariel @ [facility] [phone] . that patient has been accepted to their facility upon discharge. Yariel requested updated clinical when closer to discharge. CM will continue to follow and assist as needed with discharge planning / needs. DCP- Discharge Planning Updated by [id number]: Tori Cassidy on 02/12/18 11:[address] CM was notified that patient sister Peyton Iglesias is requesting patient to go for rehab at [facility] in [place]. CM contacted [facility] and sent records as requested. CM awaiting on approval. CM will continue to follow and assist as needed with discharge planning / needs. DCP- Discharge Planning Updated by [id number]: Yanet Magallanes on 02/07/18 12:[address] Patient Name: AMARA MCLAUGHLIN Admission Status: Elective Accout number: [id number] Admission Date: 02-06-2018 : 1930 Admission Diagnosis: Attending: ZAHEER AMAYA Current LOS: 1 Anticipated DC Date: Planned Disposition: Home Primary Insurance: MEDICARE A & B Discharge Planning Comments: CM met with patient to assess discharge planning needs. Patient lives independently in [place] where he plans to return. His sister or nephew will be the one to drive him home at discharge, He did state that he has a 18 year old girl who lives with him. He has a cane that he uses, but does not use any other DME. CM will continue to follow and assist with DC planning needs. Literacy Education Professor: Yanet Maglalanes DCPIA - Discharge Planning Initial Assessment Updated by [email or web address]: Yanet Magallanes on 02/07/18 1:48 pm * Is the patient Alert and Oriented? Yes * How many steps to enter\exit or inside your home? * PCP Dr Echavarria ([place]) * [facility] * Preadmission Environment Home with Family * ADLs Independent * Equipment Cane * List name and contact numbers for known caregivers / representatives who currently or will assist patient after discharge: Peyton (sister) [phone] * Verbal permission to speak to the caregivers and representatives has been obtained from the patient. Yes * Additional services required to return to the preadmission environment? No * Can the patient safely return to the preadmission environment? Yes * Has this patient been hospitalized within the prior 30 days at any hospital? No Coverage Notice Reviewer: [id number] Marie Greene Notice Issued Date-Time: 02/20/2018 14:30 Notice Type: IM Discharge Notice Notice Delivered To: Patient Relationship to Patient: Electric Meter Inspector Name: Delivery Method: HAND - Hand Delivered Roya Days: Prior Verbal Notification: Recipient Understood Notice: Yes Recipient Signature: Yes Med Rec Note Co-signed by Attending: Coverage Notice Comment: Last DP export: 02/22/18 6:53 Patient Name: AMARA MCLAUGHLIN Page 21209 at 1211 All edits/amendments must be made on the electronic document DICTATION DATE: 02/22/18 1210 ATHLETIC TRAINER: MAURO 02/22/18 1210 RPT#: [id number] DC DATE: STATUS: ADM IN [facility] [address] [place] [address] END OF REPORT
[2018-02-06] MEDS ORDERED: PROSCAR5 MG PO (14:56)
[2018-02-06] MEDS ORDERED: TYLENOL W/CODEI1 TAB PO (14:56)
[2018-02-06] MEDS ORDERED: ACETAMINOPHEN500 M1 PO (14:57)
[2018-02-06 15:07] VITALS: BP 151/95; BMI 24.4
[2018-02-06 20:06] VITALS: BP 124/65
[2018-02-07] VITALS (11 sets, daily range): BP systolic 96–138; BP diastolic 47–75; Ht 182.9 cm; Wt 88.7 kg
[2018-02-07 06:09] LABS: BASOPHILS 0.1 % (0-2); EOSINOPHILS 0.2 % (0-7); HEMATOCRIT 39.8 % (42.0-54.0); HEMOGLOBIN 13.3 g/dL (13.5-17.5); IMMATURE GRANULOCYTES 0.1 % (0-5); LYMPHOCYTES 13.5 % (15-50); MCH 30.6 pg (26.0-34.0); MCHC 33.4 g/dL (31.0-37.0); MCV 91.7 fL (80.0-100.0); MEAN PLATELET VOLUME 10.5 fL (7.4-10.4); MONOCYTES 10.9 % (2-11); NEUTROPHILS 75.2 % (40-80); PLATELET COUNT 226 10x3/uL (130-400); RBC 4.34 10x6/uL (4.20-6.10); RDW 14.1 % (11.5-14.5); WBC 15.5 10x3/uL (4.8-10.8)
[2018-02-07 06:14] LABS: ANION GAP 11.2 mmol/L (8-16); CALCIUM 8.4 mg/dL (8.5-10.1); CARBON DIOXIDE 27.8 mmol/L (21.0-32.0); CREATININE - SERUM 1.5 mg/dL (0.6-1.3)
[2018-02-08] VITALS (25 sets, daily range): BP systolic 94–131; BP diastolic 53–83
[2018-02-08 06:56] LABS: BASOPHILS 0.1 % (0-2); EOSINOPHILS 0.4 % (0-7); HEMATOCRIT 36.1 % (42.0-54.0); HEMOGLOBIN 12.2 g/dL (13.5-17.5); IMMATURE GRANULOCYTES 0.2 % (0-5); LYMPHOCYTES 19.6 % (15-50); MCH 30.7 pg (26.0-34.0); MCHC 33.8 g/dL (31.0-37.0); MCV 90.7 fL (80.0-100.0); MEAN PLATELET VOLUME 10.2 fL (7.4-10.4); MONOCYTES 8.3 % (2-11); NEUTROPHILS 71.4 % (40-80); PLATELET COUNT 196 10x3/uL (130-400); RBC 3.98 10x6/uL (4.20-6.10); RDW 13.9 % (11.5-14.5); WBC 11.9 10x3/uL (4.8-10.8)
[2018-02-08 07:07] LABS: ANION GAP 12.7 mmol/L (8-16); CALCIUM 8.3 mg/dL (8.5-10.1); CARBON DIOXIDE 25.9 mmol/L (21.0-32.0); CREATININE - SERUM 1.3 mg/dL (0.6-1.3); POTASSIUM - SERUM 3.6 mmol/L (3.5-5.1)
[2018-02-08 07:34] LABS: APTT 34.7 SECONDS (22.8-39.4); INR 1.16 (0.85-1.17); PROTIME 14.4 SECONDS (11.6-15.0)
[2018-02-08 23:45] LABS: APPEARANCE CLEAR (CLEAR); BILIRUBIN NEGATIVE (NEGATIVE); COLOR YELLOW (YELLOW); GLUCOSE 50 mg/dL (NEGATIVE); KETONE NEGATIVE (NEGATIVE); NITRITE NEGATIVE (NEGATIVE); PROTEIN NEGATIVE (NEGATIVE); SPECIFIC GRAVITY 1.015 (1.005-1.020); UROBILINOGEN NORMAL (NORMAL)
[2018-02-09] VITALS (24 sets, daily range): BP systolic 89–159; BP diastolic 51–79
[2018-02-09 04:20] LABS: BASOPHILS 0 % (0-2); EOSINOPHILS 0.2 % (0-7); HEMATOCRIT 38.7 % (42.0-54.0); IMMATURE GRANULOCYTES 0.5 % (0-5); LYMPHOCYTES 40.3 % (15-50); MCH 30.7 pg (26.0-34.0); MCHC 33.6 g/dL (31.0-37.0); MCV 91.5 fL (80.0-100.0); MEAN PLATELET VOLUME 9.9 fL (7.4-10.4); PLATELET COUNT 218 10x3/uL (130-400); RBC 4.23 10x6/uL (4.20-6.10); RDW 14.2 % (11.5-14.5)
[2018-02-09 04:21] LABS: WBC 4.3 10x3/uL (4.8-10.8)
[2018-02-09 04:30] LABS: ANION GAP 13.9 mmol/L (8-16); CALCIUM 8.1 mg/dL (8.5-10.1); CARBON DIOXIDE 24.1 mmol/L (21.0-32.0); CREATININE - SERUM 1.4 mg/dL (0.6-1.3)
[2018-02-10] VITALS (30 sets, daily range): BP systolic 105–136; BP diastolic 53–90
[2018-02-10 06:43] LABS: BASOPHILS 0.1 % (0-2); EOSINOPHILS 0.8 % (0-7); HEMOGLOBIN 11.4 g/dL (13.5-17.5); IMMATURE GRANULOCYTES 0.8 % (0-5); LYMPHOCYTES 9.4 % (15-50); MCH 30.3 pg (26.0-34.0); MCHC 33.5 g/dL (31.0-37.0); MCV 90.4 fL (80.0-100.0); MEAN PLATELET VOLUME 10.3 fL (7.4-10.4); MONOCYTES 6.2 % (2-11); NEUTROPHILS 82.7 % (40-80); PLATELET COUNT 208 10x3/uL (130-400); RBC 3.76 10x6/uL (4.20-6.10); RDW 14.3 % (11.5-14.5)
[2018-02-10 06:44] LABS: WBC 13.2 10x3/uL (4.8-10.8)
[2018-02-10 07:24] LABS: ANION GAP 16.9 mmol/L (8-16); CALCIUM 8.2 mg/dL (8.5-10.1); CARBON DIOXIDE 19.4 mmol/L (21.0-32.0); CREATININE - SERUM 1.5 mg/dL (0.6-1.3); MAGNESIUM - SERUM 2.2 mg/dL (1.8-2.4); PHOSPHOROUS 2.5 mg/dL (2.5-4.9); POTASSIUM - SERUM 4.3 mmol/L (3.5-5.1)
[2018-02-11] VITALS (24 sets, daily range): BP systolic 112–132; BP diastolic 60–94
[2018-02-11 05:58] LABS: BASOPHILS 0.1 % (0-2); EOSINOPHILS 0 % (0-7); HEMATOCRIT 34.1 % (42.0-54.0); HEMOGLOBIN 11.7 g/dL (13.5-17.5); IMMATURE GRANULOCYTES 0.7 % (0-5); LYMPHOCYTES 4.4 % (15-50); MCH 30.5 pg (26.0-34.0); MCHC 34.3 g/dL (31.0-37.0); MEAN PLATELET VOLUME 10.5 fL (7.4-10.4); MONOCYTES 4.6 % (2-11); NEUTROPHILS 90.2 % (40-80); PLATELET COUNT 228 10x3/uL (130-400); RBC 3.83 10x6/uL (4.20-6.10); RDW 14.2 % (11.5-14.5)
[2018-02-11 06:28] LABS: ALBUMIN 1.9 g/dL (3.4-5.0); ANION GAP 14.1 mmol/L (8-16); CALCIUM 8.3 mg/dL (8.5-10.1); CARBON DIOXIDE 21.8 mmol/L (21.0-32.0); CREATININE - SERUM 1.3 mg/dL (0.6-1.3); MAGNESIUM - SERUM 2.1 mg/dL (1.8-2.4); PHOSPHOROUS 2.9 mg/dL (2.5-4.9); POTASSIUM - SERUM 3.9 mmol/L (3.5-5.1)
[2018-02-11 08:16] LABS: APPEARANCE HAZY (CLEAR); BILIRUBIN NEGATIVE (NEGATIVE); COLOR YELLOW (YELLOW); GLUCOSE NEGATIVE (NEGATIVE); KETONE NEGATIVE (NEGATIVE); NITRITE NEGATIVE (NEGATIVE); PROTEIN NEGATIVE (NEGATIVE); SPECIFIC GRAVITY 1.015 (1.005-1.020); UROBILINOGEN NORMAL (NORMAL)
[2018-02-11 08:17] LABS: BACTERIA NONE SEEN /hpf (NONE SEEN); EPITHELIAL CELLS NSEEN /hpf (0-5); RED CELLS - URINE 0-5 /hpf (0-5); WHITE CELLS - URINE NSEEN /hpf (0-5)
[2018-02-12] VITALS (23 sets, daily range): BP systolic 112–140; BP diastolic 64–94
[2018-02-12 04:30] LABS: BASOPHILS 0.1 % (0-2); EOSINOPHILS 0 % (0-7); HEMATOCRIT 32.3 % (42.0-54.0); IMMATURE GRANULOCYTES 0.8 % (0-5); LYMPHOCYTES 4.6 % (15-50); MCH 29.9 pg (26.0-34.0); MCHC 34.1 g/dL (31.0-37.0); MCV 87.8 fL (80.0-100.0); MEAN PLATELET VOLUME 10.4 fL (7.4-10.4); MONOCYTES 4.8 % (2-11); NEUTROPHILS 89.7 % (40-80); PLATELET COUNT 241 10x3/uL (130-400); RBC 3.68 10x6/uL (4.20-6.10); RDW 13.9 % (11.5-14.5)
[2018-02-12 04:57] LABS: ANION GAP 14.5 mmol/L (8-16); CALCIUM 8.4 mg/dL (8.5-10.1); CARBON DIOXIDE 25.1 mmol/L (21.0-32.0); CREATININE - SERUM 1.4 mg/dL (0.6-1.3); POTASSIUM - SERUM 3.6 mmol/L (3.5-5.1)
[2018-02-13] VITALS (23 sets, daily range): BP systolic 93–143; BP diastolic 52–94
[2018-02-13 04:53] LABS: ANION GAP 15.1 mmol/L (8-16); CALCIUM 8.3 mg/dL (8.5-10.1); CARBON DIOXIDE 25.3 mmol/L (21.0-32.0); CREATININE - SERUM 1.4 mg/dL (0.6-1.3); POTASSIUM - SERUM 3.4 mmol/L (3.5-5.1)
[2018-02-13 04:54] LABS: BASOPHILS 0 % (0-2); EOSINOPHILS 0.1 % (0-7); HEMATOCRIT 34.1 % (42.0-54.0); HEMOGLOBIN 11.7 g/dL (13.5-17.5); LYMPHOCYTES 6.1 % (15-50); MCH 30.2 pg (26.0-34.0); MCHC 34.3 g/dL (31.0-37.0); MCV 87.9 fL (80.0-100.0); MEAN PLATELET VOLUME 10.4 fL (7.4-10.4); NEUTROPHILS 85.8 % (40-80); PLATELET COUNT 277 10x3/uL (130-400); RBC 3.88 10x6/uL (4.20-6.10)
[2018-02-13 05:03] LABS: WBC 12.1 10x3/uL (4.8-10.8)
[2018-02-14] VITALS (23 sets, daily range): BP systolic 118–155; BP diastolic 82–107
[2018-02-14 04:39] LABS: BASOPHILS 0.1 % (0-2); EOSINOPHILS 0.1 % (0-7); HEMATOCRIT 35.1 % (42.0-54.0); HEMOGLOBIN 12.1 g/dL (13.5-17.5); IMMATURE GRANULOCYTES 1.3 % (0-5); LYMPHOCYTES 11.3 % (15-50); MCH 30.6 pg (26.0-34.0); MCHC 34.5 g/dL (31.0-37.0); MCV 88.6 fL (80.0-100.0); MEAN PLATELET VOLUME 10.2 fL (7.4-10.4); NEUTROPHILS 80.2 % (40-80); PLATELET COUNT 266 10x3/uL (130-400); RBC 3.96 10x6/uL (4.20-6.10); WBC 14.3 10x3/uL (4.8-10.8)
[2018-02-14 04:48] LABS: ANION GAP 9.3 mmol/L (8-16); CALCIUM 7.8 mg/dL (8.5-10.1); CARBON DIOXIDE 28.4 mmol/L (21.0-32.0); CREATININE - SERUM 1.1 mg/dL (0.6-1.3); POTASSIUM - SERUM 3.7 mmol/L (3.5-5.1)
[2018-02-15] VITALS (28 sets, daily range): BP systolic 106–148; BP diastolic 51–100
[2018-02-15 04:54] LABS: BASOPHILS 0.1 % (0-2); EOSINOPHILS 0.4 % (0-7); HEMOGLOBIN 14.2 g/dL (13.5-17.5); IMMATURE GRANULOCYTES 1.4 % (0-5); MCH 30.7 pg (26.0-34.0); MCHC 34.6 g/dL (31.0-37.0); MCV 88.7 fL (80.0-100.0); MEAN PLATELET VOLUME 10.3 fL (7.4-10.4); MONOCYTES 5.7 % (2-11); NEUTROPHILS 84.4 % (40-80); PLATELET COUNT 261 10x3/uL (130-400); RBC 4.62 10x6/uL (4.20-6.10); RDW 14.2 % (11.5-14.5); WBC 16.8 10x3/uL (4.8-10.8)
[2018-02-15 04:55] LABS: ANION GAP 12.1 mmol/L (8-16); CALCIUM 8.1 mg/dL (8.5-10.1); CARBON DIOXIDE 24.7 mmol/L (21.0-32.0); CREATININE - SERUM 1.1 mg/dL (0.6-1.3); POTASSIUM - SERUM 3.8 mmol/L (3.5-5.1)
[2018-02-16] VITALS (32 sets, daily range): BP systolic 101–134; BP diastolic 50–94
[2018-02-16 04:53] LABS: BASOPHILS 0.1 % (0-2); EOSINOPHILS 1.2 % (0-7); HEMATOCRIT 42.8 % (42.0-54.0); HEMOGLOBIN 14.7 g/dL (13.5-17.5); IMMATURE GRANULOCYTES 1.6 % (0-5); LYMPHOCYTES 11.5 % (15-50); MCH 30.6 pg (26.0-34.0); MCHC 34.3 g/dL (31.0-37.0); MCV 89.2 fL (80.0-100.0); MONOCYTES 5.5 % (2-11); NEUTROPHILS 80.1 % (40-80); PLATELET COUNT 256 10x3/uL (130-400); RDW 14.3 % (11.5-14.5); WBC 18.8 10x3/uL (4.8-10.8)
[2018-02-16 05:10] LABS: ANION GAP 11.4 mmol/L (8-16); CALCIUM 8.2 mg/dL (8.5-10.1); CARBON DIOXIDE 24.5 mmol/L (21.0-32.0); CREATININE - SERUM 1.1 mg/dL (0.6-1.3); POTASSIUM - SERUM 3.9 mmol/L (3.5-5.1)
[2018-02-17] VITALS (20 sets, daily range): BP systolic 102–141; BP diastolic 57–91
[2018-02-17 05:48] LABS: BASOPHILS 0.1 % (0-2); EOSINOPHILS 1.5 % (0-7); HEMATOCRIT 38.7 % (42.0-54.0); HEMOGLOBIN 13.3 g/dL (13.5-17.5); IMMATURE GRANULOCYTES 1.4 % (0-5); LYMPHOCYTES 12.1 % (15-50); MCH 30.5 pg (26.0-34.0); MCHC 34.4 g/dL (31.0-37.0); MCV 88.8 fL (80.0-100.0); MEAN PLATELET VOLUME 11.1 fL (7.4-10.4); NEUTROPHILS 78.9 % (40-80); PLATELET COUNT 254 10x3/uL (130-400); RBC 4.36 10x6/uL (4.20-6.10); RDW 14.4 % (11.5-14.5); WBC 14.9 10x3/uL (4.8-10.8)
[2018-02-17 05:58] LABS: CALC OSMOLALITY 284 mosm/kg (275-300); CALCIUM 7.6 mg/dL (8.5-10.1); CHLORIDE - SERUM 101 mmol/L (98-107); GLUCOSE 115 mg/dL (74-106); POTASSIUM - SERUM 3.8 mmol/L (3.5-5.1); SODIUM 138 mmol/L (136-145); UREA NITROGEN 35 mg/dL (7-18); eGFR NON AFRICAN AMERICAN 75 mL/min (90-120)
[2018-02-18 02:59] VITALS: BP 123/76
[2018-02-18 06:45] VITALS: BP 135/66
[2018-02-18 11:42] LABS: BASOPHILS 0.1 % (0-2); EOSINOPHILS 1.7 % (0-7); HEMATOCRIT 35.9 % (42.0-54.0); HEMOGLOBIN 12.4 g/dL (13.5-17.5); LYMPHOCYTES 12.4 % (15-50); MCH 30.8 pg (26.0-34.0); MCHC 34.5 g/dL (31.0-37.0); MCV 89.1 fL (80.0-100.0); MEAN PLATELET VOLUME 10.2 fL (7.4-10.4); MONOCYTES 9.1 % (2-11); NEUTROPHILS 75.7 % (40-80); PLATELET COUNT 276 10x3/uL (130-400); RBC 4.03 10x6/uL (4.20-6.10); RDW 14.4 % (11.5-14.5); WBC 14.1 10x3/uL (4.8-10.8)
[2018-02-18 11:48] VITALS: BP 154/72
[2018-02-18 11:50] LABS: CALC OSMOLALITY 282 mosm/kg (275-300); CALCIUM 8.1 mg/dL (8.5-10.1); CHLORIDE - SERUM 104 mmol/L (98-107); GLUCOSE 104 mg/dL (74-106); POTASSIUM - SERUM 3.4 mmol/L (3.5-5.1); SODIUM 138 mmol/L (136-145); UREA NITROGEN 33 mg/dL (7-18); eGFR NON AFRICAN AMERICAN 75 mL/min (90-120)
[2018-02-18 16:38] VITALS: BP 160/74
[2018-02-18 20:00] VITALS: BP 128/85
[2018-02-19] VITALS: BP 128/61
[2018-02-19 04:00] VITALS: BP 132/66
[2018-02-19 08:15] VITALS: BP 138/72
[2018-02-19 11:48] VITALS: BP 136/72
[2018-02-19 16:16] VITALS: BP 139/68
[2018-02-19 18:09] LABS: AEROBE ID Final report (()); RESULT 1 Escherichia coli (())
[2018-02-19 20:00] VITALS: BP 123/54
[2018-02-20] VITALS: BP 120/65
[2018-02-20 04:00] VITALS: BP 127/57
[2018-02-20 08:02] VITALS: BP 131/93
[2018-02-20 11:37] VITALS: BP 133/67
[2018-02-20 16:52] VITALS: BP 130/82
[2018-02-20 20:00] VITALS: BP 122/75
[2018-02-21] VITALS: BP 130/69
[2018-02-21 04:38] LABS: BASOPHILS 0.1 % (0-2); EOSINOPHILS 1.6 % (0-7); HEMATOCRIT 33.2 % (42.0-54.0); HEMOGLOBIN 11.2 g/dL (13.5-17.5); IMMATURE GRANULOCYTES 0.5 % (0-5); LYMPHOCYTES 15.3 % (15-50); MCH 29.9 pg (26.0-34.0); MCHC 33.7 g/dL (31.0-37.0); MCV 88.8 fL (80.0-100.0); MEAN PLATELET VOLUME 10.4 fL (7.4-10.4); NEUTROPHILS 69.5 % (40-80); PLATELET COUNT 317 10x3/uL (130-400); RBC 3.74 10x6/uL (4.20-6.10); RDW 14.3 % (11.5-14.5); WBC 10.6 10x3/uL (4.8-10.8)
[2018-02-21 04:54] LABS: CALC OSMOLALITY 270 mosm/kg (275-300); CALCIUM 8.3 mg/dL (8.5-10.1); CHLORIDE - SERUM 101 mmol/L (98-107); GLUCOSE 110 mg/dL (74-106); POTASSIUM - SERUM 3.9 mmol/L (3.5-5.1); SODIUM 134 mmol/L (136-145); UREA NITROGEN 19 mg/dL (7-18); eGFR NON AFRICAN AMERICAN 75 mL/min (90-120)
[2018-02-21 08:38] VITALS: BP 139/83
[2018-02-21 12:01] VITALS: BP 124/67
[2018-02-21 16:31] VITALS: BP 136/75
[2018-02-21 20:00] VITALS: BP 113/72
[2018-02-22] VITALS: BP 126/62
[2018-02-22 04:00] VITALS: BP 129/70
[2018-02-22 08:06] VITALS: BP 123/56
[2018-02-22 11:14] VITALS: BP 114/68
[2018-02-22] MEDS ORDERED: ELIQUIS2.5 MG PO (12:31)
[2018-02-22] MEDS ORDERED: NYSTATIN ORAL SU5 ML PO (12:31)
[2018-02-22] MEDS ORDERED: BROVANA15 MCG/2 M INH (12:31)
[2018-02-22] MEDS ORDERED: BETAPACE 80 MG80 MG PO (12:31)
[2018-02-22] MEDS ORDERED: ATROVENT 0.02%2.5 ML UPD (12:31)
[2018-02-22] MEDS ORDERED: PULMICORT0.5 MG/21 UPD (12:32)
[2018-02-22] MEDS ORDERED: PROSCAR5 MG PO (12:32)
[2018-02-22 15:02] VITALS: BP 117/60
[2018-02-22 20:00] VITALS: BP 135/58
[2018-02-23] VITALS: BP 119/72
[2018-02-23 04:00] VITALS: BP 130/72
[2018-02-23 08:20] VITALS: BP 133/73
== END 2018-02-23 13:22 | DRG 335 ==
LOC: D.MS 12:09 → D.CVICU 14:30 → D.M3 02-17 22:09 → D.M2 02-18 08:45
PROVIDERS: Emergency Medicine; Family Medicine; Internal Medicine Cardiovascular Disease; Internal Medicine Nephrology; Internal Medicine Pulmonary Disease; Surgery
PROC: 0DN84ZZ Release Small Intestine, Percutaneous Endoscopic Approach (ICD-10-PCS; principal; 2018-02-08 14:02)
PROC: 0WQF0ZZ Repair Abdominal Wall, Open Approach (ICD-10-PCS; 2018-02-18)
DX: K56.50 Intestinal adhesions [bands], unspecified as to partial versus complete obstruction (principal); J18.9 Pneumonia, unspecified organism; J96.01 Acute respiratory failure with hypoxia; N17.9 Acute kidney failure, unspecified; J90 Pleural effusion, not elsewhere classified; I48.92 Unspecified atrial flutter; K57.92 Diverticulitis of intestine, part unspecified, without perforation or abscess without bleeding; K42.0 Umbilical hernia with obstruction, without gangrene; J98.11 Atelectasis; J44.1 Chronic obstructive pulmonary disease with (acute) exacerbation; I47.1 Supraventricular tachycardia; I71.4 Abdominal aortic aneurysm, without rupture; I12.9 Hypertensive chronic kidney disease with stage 1 through stage 4 chronic kidney disease, or unspecified chronic kidney disease; N18.9 Chronic kidney disease, unspecified; N40.0 Benign prostatic hyperplasia without lower urinary tract symptoms; Z66 Do not resuscitate; I48.0 Paroxysmal atrial fibrillation; D64.9 Anemia, unspecified; E88.09 Other disorders of plasma-protein metabolism, not elsewhere classified; K56.7 Ileus, unspecified